=== PATIENT | male | born 1955 | race Caucasian/White ===

== ENCOUNTER 2022-02-28 13:15 | Inpatient (IN) ==
[2022-02-28] MEDS ORDERED: SODIUM CHLORIDE 0.9% 500 ML IV ONE (13:52)
[2022-02-28 14:08] LABS: Basophils # (auto) 0.04 K/uL (0-0.2); Basophils % (auto) 0.3 %; Eosinophils # (auto) 0.28 K/uL (0-0.5); Eosinophils % (auto) 1.8 %; Hematocrit (blood only) 46.9 % (42-52); Hemoglobin 15.5 g/dL (14.0-18.0); Immature Granulocytes # (auto) 0.03 K/uL (0.00-0.02); Immature Granulocytes % (auto) 0.2 %; Lymphocytes # (auto) 1.73 K/uL (1.2-3.4); Lymphocytes % (auto) 11.1 %; Mean Corpuscular Hemoglobin 30.9 pg (25-34); Mean Corpuscular Volume 93.6 fL (80-100); Mean Platelet Volume 10.8 fL (7.4-10.4); Monocytes # (auto) 0.83 K/uL (0.11-0.59); Monocytes % (auto) 5.3 %; Neutrophils # (auto) 12.64 K/uL (1.4-6.5); Neutrophils % (auto) 81.3 %; Platelet Count 270 K/uL (130-400); RDW Coefficient of Variation 15.4 % (11.5-14.5); RDW Standard Deviation 51.9 fL (36.4-46.3); Red Blood Count 5.01 M/uL (4.7-6.1); White Blood Count 15.55 K/uL (4.8-10.8)
--- NOTE | 2022-02-28 14:17 | XRay Report ---
SINGLE VIEW CHEST CLINICAL HISTORY: Atypical chest pain. FINDINGS: An AP, portable, upright chest radiograph is obtained. No priors The patient is status post midline sternotomy. The heart is mildly enlarged noting atherosc lerotic calcification of the thoracic aorta. The pulmonary vasculature is noncongested. There is sign ificant fullness of both carin. Airspace consolidation is seen throughout the right upper lung. The le ft lung appears clear noting basilar atelectasis. No large pleural effusion or pneumothorax is seen. The skeletal structures are osteopenic. The bony thorax is grossly intact. IMPRESSION: 1. There is airspace consolidation throughout the right upper lung, likely representing pneumonia. Cl inical correlation will be required and radiographic follow-up to resolution is recommended. 2. There is fullness of the carin bilaterally which could represent enlargement of the pulmonary arter ies versus lymphadenopathy. If there is concern for obstructing right hilar mass lesion a contrast-en hanced CT scan should be considered. 3. Cardiomegaly with no radiographic evidence of congestive failure. ACT 112: Negative or not required by law. Electronically signed by: Harsh Lawler M.D. 02/28/2022 2:16 PM
[2022-02-28 14:39] LABS: Albumin Globulin Ratio 0.7 (0.9-2); Albumin Level 3.6 gm/dl (3.4-5.0); BUN Creatinine Ratio 21.1 (10-20); Bilirubin,Total 0.9 mg/dl (0.2-1.0); Calcium 13.9 mg/dl (8.5-10.1); Creatinine Clr Calc Pharmacy 49.4 ml/min; Est GFR (African American) 67.1 ml/min; Est GFR (Non-African American) 57.9 ml/min; Magnesium 1.7 mg/dl (1.7-2.4); Phosphorus 2.8 mg/dl (2.5-4.9); Potassium 4.6 mmol/L (3.5-5.1); Total Protein 8.6 gm/dl (6.0-8.3)
[2022-02-28] MEDS ORDERED: SODIUM CHLORIDE 0.9% 1000ML 1,000 ML IV ONE (15:28)
[2022-02-28] MEDS ORDERED: OPTIRAY 320 125ml IV ONE (16:40)
--- NOTE | 2022-02-28 16:56 | CT Scan Report ---
CT angio chest PE protocol CLINICAL HISTORY: Lung ca, elevated troponin, r/o PE TECHNIQUE: Multidetector row helical CT of the chest was performed with angiographic protocol. Rincon l and sagittal reformations were obtained. Coronal and sagittal MIPS were obtained from the axial meggan a set and were submitted for review. Automated dose lowering techniques and/or adjustment according to patient size were utilized for this exam. Comparison: Comparison is made to chest one view 02/28/2022 FINDINGS: Lungs and pleura: Diffuse centrilobular emphysema is seen most prominent in the upper lobes. Diffuse scarring is recommended. Consolidation is seen in the right upper lobe. Heart and pericardium: Heart size is normal. No pericardial effusion. Vessels: No evidence of pulmonary embolism. Moderate atherosclerotic disease is seen. Mediastinum and carin: Unremarkable. Chest wall and lower neck: Unremarkable. Abdomen: Unremarkable. Bones: Old healed rib fractures are seen. IMPRESSION: 1. No evidence of pulmonary embolism. 2. A large focus of consolidation is in the right upper lobe. Emphysema and scarring is seen. ACT 112: Negative or not required by law. Electronically signed by: Fran Quiñonez M.D. 02/28/2022 4:54 PM
[2022-02-28] MEDS ORDERED: GLUCOSE 40% GEL 15 GM TUBE PO PRN (18:31)
[2022-02-28] MEDS ORDERED: MAGNESIUM HYDROXIDE SUSP 30 ML UDC PO PRN ×2 (18:31→18:35)
[2022-02-28] MEDS ORDERED: GLUCAGON FOR INJ 1 MG VIAL SQ PRN (18:31)
[2022-02-28] MEDS ORDERED: GLUCOSE 10 TABS/TUBE PO PRN (18:31)
[2022-02-28] MEDS ORDERED: ONDANSETRON INJ 2 MG/ML 2 ML VIAL IV PRN (18:31)
[2022-02-28] MEDS ORDERED: ALUMINUM/MAGNESIUM SUSP 30 ML UDC PO PRN (18:31)
[2022-02-28] MEDS ORDERED: POLYETHYLENE (MIRALAX) 17 GM PACK PO PRN ×2 (18:31→18:35)
[2022-02-28] MEDS ORDERED: DEXTROSE 50% 50 ML SYRINGE IV PRN (18:31)
[2022-02-28] MEDS ORDERED: CARBOHYDRATES FOR HYPOGLYCEMIA PO PRN (18:31)
[2022-02-28] MEDS ORDERED: PHARMACY GLYCEMIC MGMT CONSULT PRN (18:31)
[2022-02-28] MEDS ORDERED: DOCUSATE SODIUM/SENNA 50/8.6MG TAB PO PRN (18:35)
[2022-02-28] MEDS ORDERED: ACETAMINOPHEN 325 MG TAB PO PRN (18:35)
[2022-02-28] MEDS ORDERED: bisacodyL 10 MG SUPP PR PRN (18:35)
[2022-02-28] MEDS ORDERED: IPRATROPIUM BROMIDE/ALBUTEROL respimat INH INH PRN (18:35)
[2022-02-28] MEDS ORDERED: INSULIN NPH ISOPH U HUMAN SC SCH (18:45)
--- NOTE | 2022-02-28 18:49 | Emergency Department Note ---
Impression & Plan Hypercalcemia, Mass of right lung, Chronic HFrEF (heart failure with reduced ejection fraction), Elevated troponin ED Provider Note NAME: JEREMIAH BE AGE: 66 SEX: M ARRIVES VIA: Ambulance INFORMANT: Patient ED PROVIDER(S): Law Gaxiola MD CHIEF COMPLAINT: Elevated calcium, referred. PLAN: Disposition: Admit MEDICAL DECISION MAKING: The patient is a pleasant 66-year-old gentleman with a past medical history of lung CA, CHF who presents to the emergency department from [facility] for evaluation of acute hypercalcemia which was noted today. Per EMS report his calcium was elevated to 15. Patient is a poor historian and reports generalized body aches but denies chest pain or shortness of breath from his recent baseline. On arrival the patient is chronically ill-appearing but no acute distress, afeb rile stable vital signs. He appears clinically dry. He has diminished breath sounds of the right upper lung strickland and lungs are otherwise clear. EKG without overt acute ischemia. Chest x-ray demonstrates known right upper lobe lung masslike consolidation. WBC, 15.5K, without left shift, non-specific. H/H, platelets wnl. Chemistry without acidosis. BUN/Cr>20 c/w patient's clinically dry appearance. Calcium 13.9. LFTs without significant abnormality. High-sensitivity troponin was elevated at 29.4, nonspecific. Lipase wnl. Procalcitonin is not significantly elevated. CTA of the chest was performed and was negative for PE. Remonstration and further characterization of the patient's known right upper lobe mass-like consolidation is seen. Patient was ordered for cautious IV fluid hydration in the setting of history of CHF for his elevated calcium. Plan for admission for further management. Case was discussed with Dr. Holt, [facility] hospitalist, who will evaluate the patient for admission. Triage Nursing notes reviewed and agree them. Prior medical records reviewed Vital Signs: reviewed and remarkable for no significant abnormalities Differential diagnosis: Infection, dehydration, metabolic abnormality, hypo/hyperglycemia, electrolyte disturbance, anemia, hypoxia, cardiac sources, intracerebral event, toxicologic, neurologic, as well as other pathologies. ER treatment provided: See below. Diagnostics interpreted by me: ECG: Normal sinus rhythm, 92 bpm, no ectopy, no overt ST elevation or depression, QTC 474, QRS 94 Cardiac Monitoring: An order for continuous cardiac monitoring was placed and demonstrated Normal sinus rhythm, 92 bpm, no ectopy. Laboratory studies: See below Imaging studies: See below Consultation(s): Dr. Holt, [facility] hospitalist. HPI: The patient is a pleasant 66-year-old gentleman with a past medical history of lung CA, CHF who presents to the emergency department from [facility] for evaluation of acute hypercalcemia which was noted today. Per EMS report his calcium was elevated to 15. Patient is a poor historian and reports generalized body aches but denies chest pain or shortness of breath from his recent baseline. ROS: See above HPI for pertinent positives & negatives. A total of 10 systems reviewed and were otherwise negative. VITALS:See Below PHYSICAL EXAMINATION: GENERAL: Awake, alert, chronically ill-appearing, in no distress HENT: Normocephalic, atraumatic. Oropharynx with dry mucous membranes and otherwise unremarkable. EYES: Normal conjunctiva. Sclera non-icteric. NECK: Supple. No nuchal rigidity. FROM. No JVD. RESPIRATORY: Diminished breath sounds of the right upper lung strickland and lungs are otherwise clear. CARDIAC: Regular rate, normal rhythm. Extremities warm and well perfused. Pulses equal. ABDOMEN: Soft, non-distended. No tenderness to palpation. No rebound or guarding. No masses. RECTAL: Deferred. MUSCULOSKELETAL: Chest examination reveals no tenderness. The back is symmetrical on inspection without obvious abnormality. There is no CVA tenderness to palpation. No joint edema. LOWER EXTREMITIES: Calves are equal size bilaterally and non-tender. No edema. No discoloration. NEURO: Normal sensorium. No sensory or motor deficits noted. SKIN: No rash or jaundice noted. ED COURSE: Critical Care: I have personally spent greater than 45 minutes of critical care time in the direct management of this patient. This includes bedside care, interpretation of diagnostic studies, and testing, discussion with consultants, patient, and family members, and other required patient management activities. This 45 minutes is in excess of all separately billable procedures. Law Gaxiola MD Past Med/Surg History Medical History CAD (coronary artery disease) Chronic HFrEF (heart failure with reduced ejection fraction) Chronic respiratory failure COPD (chronic obstructive pulmonary disease) CVA (cerebral vascular accident) CVA (cerebral vascular accident) Ischemic cardiomyopathy Pulmonary HTN Squamous cell carcinoma of lung T2DM (type 2 diabetes mellitus) Surgical History Hx of coronary artery bypass graft x4CABG, CANNON, EVH performed by Wild Kumar MD at [facility] Family History Father , 58 Lymphoma Mother Depression Alcohol abuse Social History Smoking Status: Never smoker Tobacco Type: Cigarettes packs per day: 1; Years Smoked: 47; Do You Dip or Chew Tobacco: No; Hx Alcohol Use: No Hx Substance Use: No Preferred Language: Citizen Of [place] Communication Ability: Effective 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: No Beliefs That Will Affect Care: None marital status: Current Living Situation: Spouse Other Information That Helps Us Care for You: No Feels Safe at Home: Yes Safety Concerns: Feels Safe At This Time Assistive Devices: None Allergies Allergies Allergy/AdvReac Type Severity Reaction Status Date / Time No Known Allergies Allergy Verified 02/28/22 16:33 Home Meds Home Medications Medication Instructions Recorded Confirmed Oxygen Home 02/03/22 02/28/22 aspirin 81 mg tablet,delayed 81 mg PO DAILY 02/03/22 02/28/22 release atorvastatin 40 mg tablet 40 mg PO QDD 02/03/22 02/28/22 clopidogrel 75 mg tablet 75 mg PO DAILY 02/03/22 02/28/22 furosemide 40 mg tablet 40 mg PO DAILY 02/03/22 02/28/22 metformin 1,000 mg tablet 1,000 mg PO BIDM 02/03/22 02/28/22 metoprolol succinate 50 mg 50 mg PO BID 02/03/22 02/28/22 tablet,extended release 24 hr acetaminophen 325 mg tablet 650 mg PO Q4H PRN 02/28/22 02/28/22 (Tylenol) bisacodyl 10 mg rectal suppository 10 mg PA DAILY PRN 02/28/22 02/28/22 docusate sodium 100 mg capsule 100 mg PO BID 02/28/22 02/28/22 enoxaparin 40 mg/0.4 mL 40 mg SUBCUT DAILY 02/28/22 02/28/22 subcutaneous syringe fluticasone furoate 100 1 inh INHALATION DAILY 02/28/22 02/28/22 mcg-vilanterol 25 mcg/dose inhalation powder (Breo Ellipta) insulin NPH isoph U-100 human 30 units SC BIDWMEAL 02/28/22 02/28/22 insulin regular human 100 unit/mL 1 sliding scale dose SUBCUT ACHS 02/28/22 02/28/22 injection solution (Humulin R Regular U-100 Insulin) ipratropium 20 mcg-albuterol 100 1 puff INHALATION QID PRN 02/28/22 02/28/22 mcg/actuation mist for inhalation (Combivent Respimat) magnesium hydroxide 400 mg/5 mL 30 ml PO DAILY PRN 02/28/22 02/28/22 oral suspension (Milk of Magnesia) polyethylene glycol 3350 17 17 g PO QDL PRN 02/28/22 02/28/22 gram/dose oral powder (Miralax) sennosides 8.6 mg-docusate sodium 1 tab-cap PO QDL PRN 02/28/22 02/28/22 50 mg tablet (Senokot-S) Results & Data (ED) Vital Signs Vital Signs - 24 hr 02/28/22 13:29 02/28/22 14:13 02/28/22 15:00 Temperature 36.8 C Temperature Source Oral Pulse Rate 91 H 90 Pulse Rate [Apical] 91 H 91 H Pulse Rhythm Regular Pulse Rhythm [Apical] Respiratory Rate 20 20 18 Respiratory Effort / Characteristics Non-Labored Spontaneous Non-Labored Spontaneous Respiratory Depth Normal Normal Respiratory Pattern Regular Regular Blood Pressure 108/64 Blood Pressure [Right Arm] 108/64 109/65 Blood Pressure Mean 78 Blood Pressure Mean [Right Arm] 78 79 Blood Pressure Position [Right Arm] Sitting Pulse Oximetry 99 100 98 Oxygen Delivery Method Nasal Cannula Room Air Nasal Cannula Oxygen Flow Rate 2 2 Sepsis Recent Fever Within 48 Hours No Sepsis New/Unexplained Change in Mental Status No Sepsis Action Taken by Nursing No Action Required 02/28/22 17:00 Temperature Temperature Source Pulse Rate Pulse Rate [Apical] 95 H Pulse Rhythm Pulse Rhythm [Apical] Regular Respiratory Rate 16 Respiratory Effort / Characteristics Respiratory Depth Normal Respiratory Pattern Regular Blood Pressure Blood Pressure [Right Arm] 123/69 Blood Pressure Mean Blood Pressure Mean [Right Arm] 87 Blood Pressure Position [Right Arm] Sitting Pulse Oximetry 99 Oxygen Delivery Method Nasal Cannula Oxygen Flow Rate 2 Sepsis Recent Fever Within 48 Hours Sepsis New/Unexplained Change in Mental Status Sepsis Action Taken by Nursing Laboratory Data Attestation: I reviewed the patient's lab results. Result diagrams: 02/28/22 13:34 02/28/22 13:34 Lab Results 02/28/22 02/28/22 02/28/22 Range/Units 13:27 13:34 13:34 WBC 15.55 H (4.8-10.8) K/uL RBC 5.01 (4.7-6.1) M/uL Hgb 15.5 (14.0-18.0) g/dL Hct 46.9 (42-52) % MCV 93.6 (80-100) fL MCH 30.9 (25-34) pg MCHC 33.0 (32-36) g/dL RDW Std Deviation 51.9 H (36.4-46.3) fL RDW Coeff of Christopher 15.4 H (11.5-14.5) % Plt Count 270 (130-400) K/uL MPV 10.8 H (7.4-10.4) fL Immature Gran % (Auto) 0.2 % Neut % (Auto) 81.3 % Lymph % (Auto) 11.1 % Charlton % (Auto) 5.3 % Eos % (Auto) 1.8 % Baso % (Auto) 0.3 % Neut # (Auto) 12.64 H (1.4-6.5) K/uL Lymph # (Auto) 1.73 (1.2-3.4) K/uL Charlton # (Auto) 0.83 H (0.11-0.59) K/uL Eos # (Auto) 0.28 (0-0.5) K/uL Baso # (Auto) 0.04 (0-0.2) K/uL Immature Gran # (Auto) 0.03 H (0.00-0.02) K/uL Sodium (136-145) mmol/L Potassium (3.5-5.1) mmol/L Chloride (98-107) mmol/L Carbon Dioxide (21-32) mmol/L Anion Gap (3-11) BUN (6-23) mg/dl Creatinine (0.6-1.4) mg/dl Est Cr Clr Drug Dosing ml/min Est GFR ( Amer) ml/min Est GFR (Non-Af Amer) ml/min BUN/Creatinine Ratio (10-20) Glucose (70-99(Fasting)) mg/dl POC Glucose 112 H (70-99) mg/dl Calcium (8.5-10.1) mg/dl Phosphorus (2.5-4.9) mg/dl Magnesium (1.7-2.4) mg/dl Total Bilirubin (0.2-1.0) mg/dl AST (13-39) U/L ALT (7-52) U/L Alkaline Phosphatase (34-104) U/L Troponin I High Sens 29.4 H (0-20) pg/ml Total Protein (6.0-8.3) gm/dl Albumin (3.4-5.0) gm/dl Globulin (2.5-4.0) gm/dl Albumin/Globulin Ratio (0.9-2) Lipase (11-82) U/L Procalcitonin (0-0.5) ng/ml SARS-CoV-2, RNA, NAAT (NEGATIVE) 02/28/22 02/28/22 02/28/22 Range/Units 13:34 13:34 15:52 WBC (4.8-10.8) K/uL RBC (4.7-6.1) M/uL Hgb (14.0-18.0) g/dL Hct (42-52) % MCV (80-100) fL MCH (25-34) pg MCHC (32-36) g/dL RDW Std Deviation (36.4-46.3) fL RDW Coeff of Christopher (11.5-14.5) % Plt Count (130-400) K/uL MPV (7.4-10.4) fL Immature Gran % (Auto) % Neut % (Auto) % Lymph % (Auto) % Charlton % (Auto) % Eos % (Auto) % Baso % (Auto) % Neut # (Auto) (1.4-6.5) K/uL Lymph # (Auto) (1.2-3.4) K/uL Charlton # (Auto) (0.11-0.59) K/uL Eos # (Auto) (0-0.5) K/uL Baso # (Auto) (0-0.2) K/uL Immature Gran # (Auto) (0.00-0.02) K/uL Sodium 132 L (136-145) mmol/L Potassium 4.6 (3.5-5.1) mmol/L Chloride 89 L (98-107) mmol/L Carbon Dioxide 34 H (21-32) mmol/L Anion Gap 9 (3-11) BUN 27 H (6-23) mg/dl Creatinine 1.28 (0.6-1.4) mg/dl Est Cr Clr Drug Dosing 49.4 ml/min Est GFR ( Amer) 67.1 ml/min Est GFR (Non-Af Amer) 57.9 ml/min BUN/Creatinine Ratio 21.1 H (10-20) Glucose 115 H (70-99(Fasting)) mg/dl POC Glucose (70-99) mg/dl Calcium 13.9 H* (8.5-10.1) mg/dl Phosphorus 2.8 (2.5-4.9) mg/dl Magnesium 1.7 (1.7-2.4) mg/dl Total Bilirubin 0.9 (0.2-1.0) mg/dl AST 16 (13-39) U/L ALT 13 (7-52) U/L Alkaline Phosphatase 87 (34-104) U/L Troponin I High Sens (0-20) pg/ml Total Protein 8.6 H (6.0-8.3) gm/dl Albumin 3.6 (3.4-5.0) gm/dl Globulin 5.0 H (2.5-4.0) gm/dl Albumin/Globulin Ratio 0.7 L (0.9-2) Lipase 17 (11-82) U/L Procalcitonin 0.28 (0-0.5) ng/ml SARS-CoV-2, RNA, NAAT NEGATIVE (NEGATIVE) Administered Medications Docusate Sodium (Docusate Sodium 100 Mg Cap) 100 mg PO BID JEREMY Stop: 03/30/22 20:59 Last Admin: 02/28/22 20:46 Dose: Not Given Documented by: [id number] Enoxaparin Sodium (Enoxaparin Inj 40 Mg/0.4 Ml Syr) 40 mg SQ Q24H JEREMY Stop: 03/30/22 21:59 Last Admin: 02/28/22 20:46 Dose: 40 mg Documented by: [id number] Insulin Aspart (Insulin Aspart Per Unit) 0 units SC ACHS JEREMY Stop: 03/30/22 20:59 Last Admin: 02/28/22 20:46 Dose: Not Given Documented by: [id number] Metoprolol Succinate (Metoprolol Succ 50mg Ext Rel Tab) 50 mg PO BID JEREMY Stop: 03/30/22 20:59 Last Admin: 02/28/22 20:46 Dose: Not Given Documented by: [id number] Discontinued Medications Sodium Chloride (Nss) 500 mls @ 999 mls/hr IV .Q31M ONE Stop: 02/28/22 14:22 Last Infusion: 02/28/22 14:33 Dose: 0 mls/hr Documented by: [id number] Admin: 02/28/22 14:01 Dose: 999 mls/hr Documented by: [id number] Sodium Chloride (Nss 1000ml) 1,000 mls @ 999 mls/hr IV .Q1H1M ONE Stop: 02/28/22 16:28 Last Infusion: 02/28/22 17:26 Dose: 0 mls/hr Documented by: [id number] Admin: 02/28/22 15:54 Dose: 999 mls/hr Documented by: [id number] Ioversol (Optiray 320 125ml) 118 ml IV ONCE ONE Stop: 02/28/22 16:41 Last Admin: 02/28/22 16:41 Dose: 118 ml Documented by: [id number] Imaging Data Radiologist's Impression: Chest X-Ray 02/28/22 13:52 SINGLE VIEW CHEST CLINICAL HISTORY: Atypical chest pain. FINDINGS: An AP, portable, upright chest radiograph is obtained. No priors The patient is status post midline sternotomy. The heart is mildly enlarged noting atherosclerotic calcification of the thoracic aorta. The pulmonary vasculature is noncongested. There is significant fullness of both carin. Airspace consolidation is seen throughout the right upper lung. The left lung appears clear noting basilar atelectasis. No large pleural effusion or pneumothorax is seen. The skeletal structures are osteopenic. The bony thorax is grossly intact. IMPRESSION: 1. There is airspace consolidation throughout the right upper lung, likely representing pneumonia. Clinical correlation will be required and radiographic follow-up to resolution is recommended. 2. There is fullness of the carin bilaterally which could represent enlargement of the pulmonary arteries versus lymphadenopathy. If there is concern for obstructing right hilar mass lesion a contrast-enhanced CT scan should be considered. 3. Cardiomegaly with no radiographic evidence of congestive failure. ACT 112: Negative or not required by law. Electronically signed by: Harsh Lawler M.D. 02/28/2022 2:16 PM Chest CTA 02/28/22 15:28 CT angio chest PE protocol CLINICAL HISTORY: Lung ca, elevated troponin, r/o PE TECHNIQUE: Multidetector row helical CT of the chest was performed with angiographic protocol. Coronal and sagittal reformations were obtained. Coronal and sagittal MIPS were obtained from the axial data set and were submitted for review. Automated dose lowering techniques and/or adjustment according to patient size were utilized for this exam. Comparison: Comparison is made to chest one view 02/28/2022 FINDINGS: Lungs and pleura: Diffuse centrilobular emphysema is seen most prominent in the upper lobes. Diffuse scarring is recommended. Consolidation is seen in the right upper lobe. Heart and pericardium: Heart size is normal. No pericardial effusion. Vessels: No evidence of pulmonary embolism. Moderate atherosclerotic disease is seen. Mediastinum and carin: Unremarkable. Chest wall and lower neck: Unremarkable. Abdomen: Unremarkable. Bones: Old healed rib fractures are seen. IMPRESSION: 1. No evidence of pulmonary embolism. 2. A large focus of consolidation is in the right upper lobe. Emphysema and scarring is seen. ACT 112: Negative or not required by law. Electronically signed by: Fran Quiñonez M.D. 02/28/2022 4:54 PM Discharge Plan Visit Data Chief Complaint: Abnormal Labs/Diagnostic Testing ED Provider: Law Gaxiola Discharge Problem: Hypercalcemia, Mass of right lung, Chronic HFrEF (heart failure with reduced e jection fraction), Elevated troponin Patient Disposition: Admitted As Inpatient Discharge Instructions Interventions: ED Discharge Assessment Last Done: 02/28/22 18:09
[2022-02-28] MEDS ORDERED: Ipratropium HFA Inhaler (Combivent Respimat P&T Subs) INH PRN (19:26)
[2022-02-28] MEDS ORDERED: Albuterol HFA 8 GM Inhaler (Combivent Respimat P&T Subs) INH PRN (19:26)
--- NOTE | 2022-02-28 19:41 | History & Physical Report ---
Date of Service February 28, 2022 Assessment & Plan (1) Hypercalcemia: (2) Elevated troponin: (3) Squamous cell carcinoma of lung: (4) Chronic HFrEF (heart failure with reduced ejection fraction): (5) T2DM (type 2 diabetes mellitus): (6) COPD (chronic obstructive pulmonary disease): (7) Pulmonary HTN: (8) Hx of coronary artery bypass graft: (9) CVA (cerebral vascular accident): Plan: Pt is a 66 y/o M with hx of CAD s/p CABG, HFrEF (15%), severe pulm HTN with hypoxia (on 2L), uncontrolled IDDM, COPD with hx of smoking, subacute L parietal lobe infarct, recent dx of squamous cell carcinoma of the lung brought in from [facility] for elevated calcium Hypercalcemia: -pts Ca++ was 11.3 upon discharge from [facility] -he is currently asymptomatic -EKG showed slightly prolong QTc with NSR -not on any Ca++ supplement -will obtain PTH, ionized calcium and Vit D -due to dx of lung Cancer: if the PTH is normal or low then will get Spine imaging to r/o bone mets -admit to tele and pt is s/p 1L bolus Elevated WBC: -pt has chronic hx of elevated WBC -procal is neg and afebrile -not suspecting infection -will trend CBC Recent dx of R lung squamous cell carcinoma with hypoxia: -former smoker -on oxygen supplement - was sched to follow up oncology -will [facility] oncology follow up on discharge -discussed dx with pt and family they would like to proceed with treatment -will get palliative consult for goals of care discussion - CTA chest showed no PE HFrEF and CAD s/p CABG: -trop is elevated -pt is asymptomatic and euvolemic -Hs trop on 02/19/22 was 40 --- today it is 29.4 -will trend trop -strict I/O -will consult cards if trop increases or Ca++ worsen COPD with hypoxia: -at home pt is on 2L -will continue home regimen Uncontrolled IDDM: -will continue home insulin regimen -hold metformin -recent A1C of 11.1 Subacute infarct with prior CVA: -no residual weakness -will continue statin, aspirin and Plavix -will get PT/OT -likely discharge back to [facility] Diet:Cardiac and diabetic DVT PPx:Lovenox Code Status:FULL CODE Emergency Contact: Daughter (Shannon Scott [phone]) Admission and Anticipated Discharge Date Admission Date: February 28, 2022 History of Present Illness Chief Complaint: HyperCa++ Primary Care Provider: Hannah [facility] Pt is a 66 y/o M with hx of CAD s/p CABG, HFrEF (15%), severe pulm HTN with hypoxia (on 2L), uncontrolled IDDM, COPD with hx of smoking, subacute L parietal lobe infarct, recent dx of squamous cell carcinoma of the lung brought in from [facility] for elevated calcium. Pt was recently admitted to [facility] for hypoxia and underwent lung biopsy. He was discharged to [facility]. At bedside: pt denied any Cp, SOB, palpitation, N/V or diarrhea. Denied any myalgia, back pain, or muscle twitching Pts daughter at bedside. Their current plan is to move the pt to [place] when he is stable. Pt was scheduled to see oncology tomorrow @ [facility]. Echo (10/2021): Calculated LV ejection Fraction = 15% (bi-plane method of discs). Left ventricular diastolic dysfunction is present when systolic function is reduced. There is diffuse hypokinesis. The right ventricular cavity is mildly dilated. The right ventricular systolic function is severely reduced . Mild aortic valve sclerosis is present. Aortic stenosis is absent. Trace aortic insufficiency is present. Moderate tricuspid regurgitation is present. There is mild pulmonary regurgitation. The proximal inferior vena cava is dilated. The pulmonary artery systolic pressure is 67.6 mmHg. Dilated IVC with reduced collapsability with sniff indicates an elevated right atrial pressure of 15mmHg. Severe pulmonary hypertension is present. MRI brain (01/2022): Generalized volume loss, chronic microvascular ischemia, prior lacunar infarcts, and focal subacute ischemia in the left parietal lobe. Otherwise, significantly limited evaluation due to motion artifact. Although no large enhancing lesions are identified, smaller metastatic lesions cannot be excluded on this examination. Allergies Allergy/AdvReac Type Severity Reaction Status Date / Time No Known Allergies Allergy Verified 02/28/22 16:33 Home Medications Medication Instructions Recorded Confirmed Type Oxygen Home 02/03/22 02/28/22 History aspirin 81 mg tablet,delayed 81 mg PO DAILY 02/03/22 02/28/22 History release atorvastatin 40 mg tablet 40 mg PO QDD 02/03/22 02/28/22 History clopidogrel 75 mg tablet 75 mg PO DAILY 02/03/22 02/28/22 History furosemide 40 mg tablet 40 mg PO DAILY 02/03/22 02/28/22 History metformin 1,000 mg tablet 1,000 mg PO BIDM 02/03/22 02/28/22 History metoprolol succinate 50 mg 50 mg PO BID 02/03/22 02/28/22 History tablet,extended release 24 hr acetaminophen 325 mg tablet 650 mg PO Q4H PRN 02/28/22 02/28/22 History (Tylenol) bisacodyl 10 mg rectal suppository 10 mg IA DAILY PRN 02/28/22 02/28/22 History docusate sodium 100 mg capsule 100 mg PO BID 02/28/22 02/28/22 History enoxaparin 40 mg/0.4 mL 40 mg SUBCUT DAILY 02/28/22 02/28/22 History subcutaneous syringe fluticasone furoate 100 1 inh INHALATION DAILY 02/28/22 02/28/22 History mcg-vilanterol 25 mcg/dose inhalation powder (Breo Ellipta) insulin NPH isoph U-100 human 30 units SC BIDWMEAL 02/28/22 02/28/22 History insulin regular human 100 unit/mL 1 sliding scale dose SUBCUT ACHS 02/28/22 02/28/22 History injection solution (Humulin R Regular U-100 Insulin) ipratropium 20 mcg-albuterol 100 1 puff INHALATION QID PRN 02/28/22 02/28/22 History mcg/actuation mist for inhalation (Combivent Respimat) magnesium hydroxide 400 mg/5 mL 30 ml PO DAILY PRN 02/28/22 02/28/22 History oral suspension (Milk of Magnesia) polyethylene glycol 3350 17 17 g PO QDL PRN 02/28/22 02/28/22 History gram/dose oral powder (Miralax) sennosides 8.6 mg-docusate sodium 1 tab-cap PO QDL PRN 02/28/22 02/28/22 History 50 mg tablet (Senokot-S) Past Med/Surg History Medical History (Updated 02/28/22 @ 19:38 by Waldo Holt MD) CAD (coronary artery disease) Chronic HFrEF (heart failure with reduced ejection fraction) Chronic respiratory failure COPD (chronic obstructive pulmonary disease) CVA (cerebral vascular accident) CVA (cerebral vascular accident) Ischemic cardiomyopathy Pulmonary HTN Squamous cell carcinoma of lung T2DM (type 2 diabetes mellitus) Surgical History (Updated 02/28/22 @ 17:29 by Vinita Fernandez PA-C) Hx of coronary artery bypass graft x4CABG, [place], EVH performed by Wild Kumar MD at OR [facility] Family History (Updated 02/28/22 @ 17:30 by Vinita Fernandez PA-C) Father , 58 Lymphoma Mother Depression Alcohol abuse Social History (Updated 02/28/22 @ 17:31 by Vinita Fernandez PA-C) Smoking Status: Never smoker Tobacco Type: Cigarettes packs per day: 1; Years Smoked: 47; Do You Dip or Chew Tobacco: No; Hx Alcohol Use: No Hx Substance Use: No Preferred Language: Arabic Communication Ability: Effective Rubber Attacher Required: No Beliefs That Will Affect Care: None marital status: Current Living Situation: Spouse Other Information That Helps Us Care for You: No Feels Safe at Home: Yes Safety Concerns: Feels Safe At This Time Assistive Devices: None Review of Systems Review of Systems: At least 10 Review of systems were reviewed and all negative except as indicated in HPI Physical Exam Physical Exam: General:mildy cachetic, NAD HEENT:. Normocephalic and atraumatic, Normal Conjunctiva, EOMI, Sclera is non- icteric Lungs:.b/l lower lobe rales, No signs of respiratory distress Heart:. Normal S1, S2, no murmur Abdominal:. ND, Soft, NT MSK:.No leg edema Psych:. AAOx3, normal affect Results & Data Results & Data ([facility]) Vital Signs (Past 12 Hours) Vital Signs Temp Pulse Pulse Resp BP BP Pulse Ox 02/28/22 18:31 36.5 C 96 H 95 H 20 97/71 L 98 02/28/22 17:00 95 H 16 123/69 99 02/28/22 15:00 91 H 18 109/65 98 02/28/22 14:13 90 20 100 02/28/22 13:29 36.8 C 91 H 91 H 20 108/64 108/64 99 Pulse Ox 02/28/22 18:31 98 02/28/22 17:00 02/28/22 15:00 02/28/22 14:13 02/28/22 13:29 Laboratory Results Short CBC 02/28/22 Range/Units 13:34 WBC 15.55 H (4.8-10.8) K/uL Hgb 15.5 (14.0-18.0) g/dL Hct 46.9 (42-52) % Plt Count 270 (130-400) K/uL BMP 02/28/22 13:34 Sodium 132 L Potassium 4.6 Chloride 89 L Carbon Dioxide 34 H BUN 27 H Creatinine 1.28 Glucose 115 H Calcium 13.9 H* Liver Function 02/28/22 Range/Units 13:34 Total Bilirubin 0.9 (0.2-1.0) mg/dl AST 16 (13-39) U/L ALT 13 (7-52) U/L Alkaline Phosphatase 87 (34-104) U/L Albumin 3.6 (3.4-5.0) gm/dl Diagnostic Findings Chest X-Ray 02/28/22 13:52 SINGLE VIEW CHEST CLINICAL HISTORY: Atypical chest pain. FINDINGS: An AP, portable, upright chest radiograph is obtained. No priors The patient is status post midline sternotomy. The heart is mildly e nlarged noting atherosclerotic calcification of the thoracic aorta. The pulmonary vasculature is noncongested. There is significant fullness of both carin. Airspace consolidation is seen throughout the right upper lung. The left lung appears clear noting basilar atelectasis. No large pleural effusion or pneumothorax is seen. The skeletal structures are osteopenic. The bony thorax is grossly intact. IMPRESSION: 1. There is airspace consolidation throughout the right upper lung, likely representing pneumonia. Clinical correlation will be required and radiographic follow-up to resolution is recommended. 2. There is fullness of the carin bilaterally which could represent enlargement of the pulmonary arteries versus lymphadenopathy. If there is concern for obstructing right hilar mass lesion a contrast-enhanced CT scan should be considered. 3. Cardiomegaly with no radiographic evidence of congestive failure. ACT 112: Negative or not required by law. Electronically signed by: Harsh Lawler M.D. 02/28/2022 2:16 PM Chest CTA 02/28/22 15:28 CT angio chest PE protocol CLINICAL HISTORY: Lung ca, elevated troponin, r/o PE TECHNIQUE: Multidetector row helical CT of the chest was performed with angiographic protocol. Coronal and sagittal reformations were obtained. Coronal and sagittal MIPS were obtained from the axial data set and were submitted for review. Automated dose lowering techniques and/or adjustment according to patient size were utilized for this exam. Comparison: Comparison is made to chest one view 02/28/2022 FINDINGS: Lungs and pleura: Diffuse centrilobular emphysema is seen most prominent in the upper lobes. Diffuse scarring is recommended. Consolidation is seen in the right upper lobe. Heart and pericardium: Heart size is normal. No pericardial effusion. Vessels: No evidence of pulmonary embolism. Moderate atherosclerotic disease is seen. Mediastinum and carin: Unremarkable. Chest wall and lower neck: Unremarkable. Abdomen: Unremarkable. Bones: Old healed rib fractures are seen. IMPRESSION: 1. No evidence of pulmonary embolism. 2. A large focus of consolidation is in the right upper lobe. Emphysema and scarring is seen. ACT 112: Negative or not required by law. Electronically signed by: Fran Quiñonez M.D. 02/28/2022 4:54 PM Code Status & VTE Plan VTE Prophylaxis Plan VTE Prophylaxis will be ordered: Yes
[2022-02-28] MEDS: INSULIN ASPART PER UNIT SC SCH (20:46)
[2022-02-28] MEDS: METOPROLOL SUCC 50MG EXT REL TAB PO SCH (20:46)
[2022-02-28] MEDS: ENOXAPARIN INJ 40 MG/0.4 ML SYR SQ SCH (20:46)
[2022-02-28] MEDS: DOCUSATE SODIUM 100 MG CAP PO SCH (20:46)
[2022-02-28] MEDS ORDERED: INSULIN GLARGINE SOLOSTAR 100 UNITS/ML 3 ML PEN SC SCH (21:00)
[2022-03-01 06:45] LABS: Basophils # (auto) 0.04 K/uL (0-0.2); Basophils % (auto) 0.3 %; Hematocrit (blood only) 41.2 % (42-52); Hemoglobin 13.3 g/dL (14.0-18.0); Immature Granulocytes # (auto) 0.01 K/uL (0.00-0.02); Immature Granulocytes % (auto) 0.1 %; Lymphocytes # (auto) 1.36 K/uL (1.2-3.4); Lymphocytes % (auto) 10.2 %; Mean Corpuscular Hemoglobin 30.5 pg (25-34); Mean Corpuscular Hgb Conc 32.3 g/dL (32-36); Mean Corpuscular Volume 94.5 fL (80-100); Neutrophils # (auto) 10.68 K/uL (1.4-6.5); Neutrophils % (auto) 80.4 %; Platelet Count 251 K/uL (130-400); RDW Coefficient of Variation 15.5 % (11.5-14.5); RDW Standard Deviation 53.5 fL (36.4-46.3); Red Blood Count 4.36 M/uL (4.7-6.1); White Blood Count 13.29 K/uL (4.8-10.8)
[2022-03-01 07:12] LABS: Albumin Globulin Ratio 0.8 (0.9-2); Albumin Level 3.1 gm/dl (3.4-5.0); BUN Creatinine Ratio 21.6 (10-20); Bilirubin,Total 0.8 mg/dl (0.2-1.0); Calcium 12.6 mg/dl (8.5-10.1); Creatinine Clr Calc Pharmacy 56.9 ml/min; Est GFR (African American) 79.8 ml/min; Est GFR (Non-African American) 68.8 ml/min; Globulin 4.1 gm/dl (2.5-4.0); Magnesium 1.5 mg/dl (1.7-2.4); Potassium 4.3 mmol/L (3.5-5.1); Total Protein 7.2 gm/dl (6.0-8.3)
[2022-03-01] MEDS: CLOPIDOGREL BISULFATE 75 MG TAB PO SCH (07:39)
[2022-03-01] MEDS: ASPIRIN 81 MG ECTAB PO SCH (07:40)
[2022-03-01] MEDS: DOCUSATE SODIUM 100 MG CAP PO SCH ×2 (07:40→20:01)
[2022-03-01] MEDS: FLUTICASONE/VILANTEROL 100/25MCG 14 PUFFS/INHALER INH SCH (07:41)
[2022-03-01] MEDS: METOPROLOL SUCC 50MG EXT REL TAB PO SCH ×2 (07:41→20:01)
[2022-03-01 07:57] LABS: Estimated Average Glucose 249 mg/dl; Hemoglobin A1C 10.3 % (4.5-5.6)
[2022-03-01] MEDS: INSULIN ASPART PER UNIT SC SCH ×4 (08:38→21:07)
[2022-03-01] MEDS ORDERED: FUROSEMIDE 40 MG TAB PO SCH (09:00)
--- NOTE | 2022-03-01 10:13 | Hospitalist Progress Note ---
Date of Service March 01, 2022 Assessment & Plan (1) Hypercalcemia: (2) Elevated troponin: (3) Squamous cell carcinoma of lung: (4) Chronic HFrEF (heart failure with reduced ejection fraction): (5) T2DM (type 2 diabetes mellitus): (6) COPD (chronic obstructive pulmonary disease): (7) Pulmonary HTN: (8) Hx of coronary artery bypass graft: (9) CVA (cerebral vascular accident): Plan: Pt is a 66 y/o M with hx of CAD s/p CABG, HFrEF (15%), severe pulm HTN with hypoxia (on 2L), uncontrolled IDDM, COPD with hx of smoking, subacute L parietal lobe infarct, recent dx of squamous cell carcinoma of the lung brought in from [facility] for elevated calcium Hypercalcemia: -pts Ca++ was 11.3 upon discharge from [facility] -EKG showed slightly prolong QTc with NSR -not on any Ca++ supplement -Received 1 L of normal saline on admission - PTH 4.7 (low), ionized calcium and Vit D (pending) -due to dx of lung Cancer: if the PTH is normal or low - may need Spine imaging to r/o bone mets -Nephrology consulted, patient started on gentle IV fluids and IV Lasix, calcitonin and zoledronic acid Elevated WBC: -pt has chronic hx of elevated WBC -procal is neg and afebrile -not suspecting infection -will trend CBC Recent dx of R lung squamous cell carcinoma with hypoxia: -former smoker -on oxygen supplement - was scheduled to establish care with oncology - Dr. Paras Almazan ([facility]) -admitting provider discussed dx with pt and family they would like to proceed with treatment -palliative consult placed for goals of care discussion - CTA chest showed no PE HFrEF and CAD s/p CABG: -trop is elevated -pt is asymptomatic and euvolemic -Hs trop on 02/19/22 was 40 --- on admission it is 29.4 -trop trended down -strict I/O -would consult cards if trop increased or Ca++ worsen COPD with hypoxia: -at home pt is on 2L -will continue home regimen Uncontrolled IDDM: - current A1c 10.3%, recent A1C of 11.1 -will continue home insulin regimen -hold metformin Subacute infarct with prior CVA: -no residual weakness -will continue statin, aspirin and Plavix -will get PT/OT -likely discharge back to [facility] (however daughter wishes to take pt to [place]) Diet:Cardiac and diabetic DVT PPx:Lovenox Code Status:FULL CODE Emergency Contact: Daughter (Shannon Scott [phone]) Admission and Anticipated Discharge Date Admission Date: February 28, 2022 Subjective Pt seen in follow up of hypercalcemia in the setting of recently diagnosed lung ca Received IVF on admission and Ca level improved Pt reports that he feels better however per daughter at the bedside he looks worse She noted he is not able to answer all questions appropriately Pt currently denies fever, chills. He is on 2L of NC - which is at baseline. Denies chest pain, or worsening shortness of breath. Daughter is visiting from [place] and was planning to take the pt to [place] with her. Pt was supposed to establish care w/ oncology today at [facility]. Review of Systems Review of Systems: All systems reviewed & are unremarkable except as noted in Subjective Physical Exam Physical Exam: General: thin M inNAD HEENT:.Normocephalic and atraumatic, Normal Conjunctiva, EOMI, Sclera is non- icteric Lungs:No signs of respiratory distress, on 2L O2 via NC, no wheezing, or significant rhonchi noted Heart:.Normal S1, S2, no murmur Abdominal:.ND, Soft, NT MSK:.No LE edema Psych:.AAOx3, normal affect Results & Data Results & Data ([facility]) Vital Signs (Past 12 Hours) Vital Signs Temp Pulse Resp BP Pulse Ox 03/01/22 07:27 36.9 C 107 H 16 97/62 L 95 03/01/22 04:20 36.4 C L 111 H 22 117/72 99 02/28/22 22:46 36.5 C 99 H 24 97/66 L 99 Laboratory Results 03/01/22 03/01/22 03/01/22 Range/Units 07:28 06:01 06:01 WBC (4.8-10.8) K/uL RBC (4.7-6.1) M/uL Hgb (14.0-18.0) g/dL Hct (42-52) % MCV (80-100) fL MCH (25-34) pg MCHC (32-36) g/dL RDW Std Deviation (36.4-46.3) fL RDW Coeff of Christopher (11.5-14.5) % Plt Count (130-400) K/uL MPV (7.4-10.4) fL Immature Gran % (Auto) % Neut % (Auto) % Lymph % (Auto) % Harnett % (Auto) % Eos % (Auto) % Baso % (Auto) % Neut # (Auto) (1.4-6.5) K/uL Lymph # (Auto) (1.2-3.4) K/uL Harnett # (Auto) (0.11-0.59) K/uL Eos # (Auto) (0-0.5) K/uL Baso # (Auto) (0-0.2) K/uL Immature Gran # (Auto) (0.00-0.02) K/uL Sodium (136-145) mmol/L Potassium (3.5-5.1) mmol/L Chloride (98-107) mmol/L Carbon Dioxide (21-32) mmol/L Anion Gap (3-11) BUN (6-23) mg/dl Creatinine (0.6-1.4) mg/dl Est Cr Clr Drug Dosing ml/min Est GFR ( Amer) ml/min Est GFR (Non-Af Amer) ml/min BUN/Creatinine Ratio (10-20) Glucose (70-99(Fasting)) mg/dl POC Glucose 112 H (70-99) mg/dl Estimat Average Glucose mg/dl Hemoglobin A1c (4.5-5.6) % Calcium (8.5-10.1) mg/dl Ionized Calcium (1.12-1.32) mmol/L Phosphorus (2.5-4.9) mg/dl Magnesium (1.7-2.4) mg/dl Total Bilirubin (0.2-1.0) mg/dl AST (13-39) U/L ALT (7-52) U/L Alkaline Phosphatase (34-104) U/L Troponin I High Sens (0-20) pg/ml Total Protein (6.0-8.3) gm/dl Albumin (3.4-5.0) gm/dl Globulin (2.5-4.0) gm/dl Albumin/Globulin Ratio (0.9-2) Lipase (11-82) U/L Vit D 1,25-Dihyd Total Pending 1,25 Dihydroxy Vit D2 Pending 1,25 Dihydroxy Vit D3 Pending Procalcitonin (0-0.5) ng/ml PTH Intact 4.7 L (12.0-88.0) pg/ml SARS-CoV-2, RNA, NAAT (NEGATIVE) 03/01/22 03/01/22 03/01/22 Range/Units 06:01 06:01 06:01 WBC (4.8-10.8) K/uL RBC (4.7-6.1) M/uL Hgb (14.0-18.0) g/dL Hct (42-52) % MCV (80-100) fL MCH (25-34) pg MCHC (32-36) g/dL RDW Std Deviation (36.4-46.3) fL RDW Coeff of Christopher (11.5-14.5) % Plt Count (130-400) K/uL MPV (7.4-10.4) fL Immature Gran % (Auto) % Neut % (Auto) % Lymph % (Auto) % Harnett % (Auto) % Eos % (Auto) % Baso % (Auto) % Neut # (Auto) (1.4-6.5) K/uL Lymph # (Auto) (1.2-3.4) K/uL Harnett # (Auto) (0.11-0.59) K/uL Eos # (Auto) (0-0.5) K/uL Baso # (Auto) (0-0.2) K/uL Immature Gran # (Auto) (0.00-0.02) K/uL Sodium 134 L (136-145) mmol/L Potassium 4.3 (3.5-5.1) mmol/L Chloride 96 L (98-107) mmol/L Carbon Dioxide 32 (21-32) mmol/L Anion Gap 6 (3-11) BUN 24 H (6-23) mg/dl Creatinine 1.11 (0.6-1.4) mg/dl Est Cr Clr Drug Dosing 56.9 ml/min Est GFR ( Amer) 79.8 ml/min Est GFR (Non-Af Amer) 68.8 ml/min BUN/Creatinine Ratio 21.6 H (10-20) Glucose 98 (70-99(Fasting)) mg/dl POC Glucose (70-99) mg/dl Estimat Average Glucose 249 mg/dl Hemoglobin A1c 10.3 H (4.5-5.6) % Calcium 12.6 H* (8.5-10.1) mg/dl Ionized Calcium 1.53 H (1.12-1.32) mmol/L Phosphorus (2.5-4.9) mg/dl Magnesium 1.5 L (1.7-2.4) mg/dl Total Bilirubin 0.8 (0.2-1.0) mg/dl AST 10 L (13-39) U/L ALT 9 (7-52) U/L Alkaline Phosphatase 72 (34-104) U/L Troponin I High Sens (0-20) pg/ml Total Protein 7.2 (6.0-8.3) gm/dl Albumin 3.1 L (3.4-5.0) gm/dl Globulin 4.1 H (2.5-4.0) gm/dl Albumin/Globulin Ratio 0.8 L (0.9-2) Lipase (11-82) U/L Vit D 1,25-Dihyd Total 1,25 Dihydroxy Vit D2 1,25 Dihydroxy Vit D3 Procalcitonin (0-0.5) ng/ml PTH Intact (12.0-88.0) pg/ml SARS-CoV-2, RNA, NAAT (NEGATIVE) 03/01/22 03/01/22 02/28/22 Range/Units 06:01 00:40 20:23 WBC 13.29 H (4.8-10.8) K/uL RBC 4.36 L (4.7-6.1) M/uL Hgb 13.3 L (14.0-18.0) g/dL Hct 41.2 L (42-52) % MCV 94.5 (80-100) fL MCH 30.5 (25-34) pg MCHC 32.3 (32-36) g/dL RDW Std Deviation 53.5 H (36.4-46.3) fL RDW Coeff of Christopher 15.5 H (11.5-14.5) % Plt Count 251 (130-400) K/uL MPV 11.0 H (7.4-10.4) fL Immature Gran % (Auto) 0.1 % Neut % (Auto) 80.4 % Lymph % (Auto) 10.2 % Harnett % (Auto) 6.0 % Eos % (Auto) 3.0 % Baso % (Auto) 0.3 % Neut # (Auto) 10.68 H (1.4-6.5) K/uL Lymph # (Auto) 1.36 (1.2-3.4) K/uL Harnett # (Auto) 0.80 H (0.11-0.59) K/uL Eos # (Auto) 0.40 (0-0.5) K/uL Baso # (Auto) 0.04 (0-0.2) K/uL Immature Gran # (Auto) 0.01 (0.00-0.02) K/uL Sodium (136-145) mmol/L Potassium (3.5-5.1) mmol/L Chloride (98-107) mmol/L Carbon Dioxide (21-32) mmol/L Anion Gap (3-11) BUN (6-23) mg/dl Creatinine (0.6-1.4) mg/dl Est Cr Clr Drug Dosing ml/min Est GFR ( Amer) ml/min Est GFR (Non-Af Amer) ml/min BUN/Creatinine Ratio (10-20) Glucose (70-99(Fasting)) mg/dl POC Glucose 100 H (70-99) mg/dl Estimat Average Glucose mg/dl Hemoglobin A1c (4.5-5.6) % Calcium (8.5-10.1) mg/dl Ionized Calcium (1.12-1.32) mmol/L Phosphorus (2.5-4.9) mg/dl Magnesium (1.7-2.4) mg/dl Total Bilirubin (0.2-1.0) mg/dl AST (13-39) U/L ALT (7-52) U/L Alkaline Phosphatase (34-104) U/L Troponin I High Sens 25.7 H (0-20) pg/ml Total Protein (6.0-8.3) gm/dl Albumin (3.4-5.0) gm/dl Globulin (2.5-4.0) gm/dl Albumin/Globulin Ratio (0.9-2) Lipase (11-82) U/L Vit D 1,25-Dihyd Total 1,25 Dihydroxy Vit D2 1,25 Dihydroxy Vit D3 Procalcitonin (0-0.5) ng/ml PTH Intact (12.0-88.0) pg/ml SARS-CoV-2, RNA, NAAT (NEGATIVE) 02/28/22 02/28/22 02/28/22 Range/Units 19:27 15:52 13:34 WBC (4.8-10.8) K/uL RBC (4.7-6.1) M/uL Hgb (14.0-18.0) g/dL Hct (42-52) % MCV (80-100) fL MCH (25-34) pg MCHC (32-36) g/dL RDW Std Deviation (36.4-46.3) fL RDW Coeff of Christopher (11.5-14.5) % Plt Count (130-400) K/uL MPV (7.4-10.4) fL Immature Gran % (Auto) % Neut % (Auto) % Lymph % (Auto) % Harnett % (Auto) % Eos % (Auto) % Baso % (Auto) % Neut # (Auto) (1.4-6.5) K/uL Lymph # (Auto) (1.2-3.4) K/uL Harnett # (Auto) (0.11-0.59) K/uL Eos # (Auto) (0-0.5) K/uL Baso # (Auto) (0-0.2) K/uL Immature Gran # (Auto) (0.00-0.02) K/uL Sodium (136-145) mmol/L Potassium (3.5-5.1) mmol/L Chloride (98-107) mmol/L Carbon Dioxide (21-32) mmol/L Anion Gap (3-11) BUN (6-23) mg/dl Creatinine (0.6-1.4) mg/dl Est Cr Clr Drug Dosing ml/min Est GFR ( Amer) ml/min Est GFR (Non-Af Amer) ml/min BUN/Creatinine Ratio (10-20) Glucose (70-99(Fasting)) mg/dl POC Glucose (70-99) mg/dl Estimat Average Glucose mg/dl Hemoglobin A1c (4.5-5.6) % Calcium (8.5-10.1) mg/dl Ionized Calcium (1.12-1.32) mmol/L Phosphorus (2.5-4.9) mg/dl Magnesium (1.7-2.4) mg/dl Total Bilirubin (0.2-1.0) mg/dl AST (13-39) U/L ALT (7-52) U/L Alkaline Phosphatase (34-104) U/L Troponin I High Sens 26.0 H (0-20) pg/ml Total Protein (6.0-8.3) gm/dl Albumin (3.4-5.0) gm/dl Globulin (2.5-4.0) gm/dl Albumin/Globulin Ratio (0.9-2) Lipase (11-82) U/L Vit D 1,25-Dihyd Total 1,25 Dihydroxy Vit D2 1,25 Dihydroxy Vit D3 Procalcitonin 0.28 (0-0.5) ng/ml PTH Intact (12.0-88.0) pg/ml SARS-CoV-2, RNA, NAAT NEGATIVE (NEGATIVE) 02/28/22 02/28/22 02/28/22 Range/Units 13:34 13:34 13:34 WBC 15.55 H (4.8-10.8) K/uL RBC 5.01 (4.7-6.1) M/uL Hgb 15.5 (14.0-18.0) g/dL Hct 46.9 (42-52) % MCV 93.6 (80-100) fL MCH 30.9 (25-34) pg MCHC 33.0 (32-36) g/dL RDW Std Deviation 51.9 H (36.4-46.3) fL RDW Coeff of Christopher 15.4 H (11.5-14.5) % Plt Count 270 (130-400) K/uL MPV 10.8 H (7.4-10.4) fL Immature Gran % (Auto) 0.2 % Neut % (Auto) 81.3 % Lymph % (Auto) 11.1 % Harnett % (Auto) 5.3 % Eos % (Auto) 1.8 % Baso % (Auto) 0.3 % Neut # (Auto) 12.64 H (1.4-6.5) K/uL Lymph # (Auto) 1.73 (1.2-3.4) K/uL Harnett # (Auto) 0.83 H (0.11-0.59) K/uL Eos # (Auto) 0.28 (0-0.5) K/uL Baso # (Auto) 0.04 (0-0.2) K/uL Immature Gran # (Auto) 0.03 H (0.00-0.02) K/uL Sodium 132 L (136-145) mmol/L Potassium 4.6 (3.5-5.1) mmol/L Chloride 89 L (98-107) mmol/L Carbon Dioxide 34 H (21-32) mmol/L Anion Gap 9 (3-11) BUN 27 H (6-23) mg/dl Creatinine 1.28 (0.6-1.4) mg/dl Est Cr Clr Drug Dosing 49.4 ml/min Est GFR ( Amer) 67.1 ml/min Est GFR (Non-Af Amer) 57.9 ml/min BUN/Creatinine Ratio 21.1 H (10-20) Glucose 115 H (70-99(Fasting)) mg/dl POC Glucose (70-99) mg/dl Estimat Average Glucose mg/dl Hemoglobin A1c (4.5-5.6) % Calcium 13.9 H* (8.5-10.1) mg/dl Ionized Calcium (1.12-1.32) mmol/L Phosphorus 2.8 (2.5-4.9) mg/dl Magnesium 1.7 (1.7-2.4) mg/dl Total Bilirubin 0.9 (0.2-1.0) mg/dl AST 16 (13-39) U/L ALT 13 (7-52) U/L Alkaline Phosphatase 87 (34-104) U/L Troponin I High Sens 29.4 H (0-20) pg/ml Total Protein 8.6 H (6.0-8.3) gm/dl Albumin 3.6 (3.4-5.0) gm/dl Globulin 5.0 H (2.5-4.0) gm/dl Albumin/Globulin Ratio 0.7 L (0.9-2) Lipase 17 (11-82) U/L Vit D 1,25-Dihyd Total 1,25 Dihydroxy Vit D2 1,25 Dihydroxy Vit D3 Procalcitonin (0-0.5) ng/ml PTH Intact (12.0-88.0) pg/ml SARS-CoV-2, RNA, NAAT (NEGATIVE) 02/28/22 Range/Units 13:27 WBC (4.8-10.8) K/uL RBC (4.7-6.1) M/uL Hgb (14.0-18.0) g/dL Hct (42-52) % MCV (80-100) fL MCH (25-34) pg MCHC (32-36) g/dL RDW Std Deviation (36.4-46.3) fL RDW Coeff of Christopher (11.5-14.5) % Plt Count (130-400) K/uL MPV (7.4-10.4) fL Immature Gran % (Auto) % Neut % (Auto) % Lymph % (Auto) % Harnett % (Auto) % Eos % (Auto) % Baso % (Auto) % Neut # (Auto) (1.4-6.5) K/uL Lymph # (Auto) (1.2-3.4) K/uL Harnett # (Auto) (0.11-0.59) K/uL Eos # (Auto) (0-0.5) K/uL Baso # (Auto) (0-0.2) K/uL Immature Gran # (Auto) (0.00-0.02) K/uL Sodium (136-145) mmol/L Potassium (3.5-5.1) mmol/L Chloride (98-107) mmol/L Carbon Dioxide (21-32) mmol/L Anion Gap (3-11) BUN (6-23) mg/dl Creatinine (0.6-1.4) mg/dl Est Cr Clr Drug Dosing ml/min Est GFR ( Amer) ml/min Est GFR (Non-Af Amer) ml/min BUN/Creatinine Ratio (10-20) Glucose (70-99(Fasting)) mg/dl POC Glucose 112 H (70-99) mg/dl Estimat Average Glucose mg/dl Hemoglobin A1c (4.5-5.6) % Calcium (8.5-10.1) mg/dl Ionized Calcium (1.12-1.32) mmol/L Phosphorus (2.5-4.9) mg/dl Magnesium (1.7-2.4) mg/dl Total Bilirubin (0.2-1.0) mg/dl AST (13-39) U/L ALT (7-52) U/L Alkaline Phosphatase (34-104) U/L Troponin I High Sens (0-20) pg/ml Total Protein (6.0-8.3) gm/dl Albumin (3.4-5.0) gm/dl Globulin (2.5-4.0) gm/dl Albumin/Globulin Ratio (0.9-2) Lipase (11-82) U/L Vit D 1,25-Dihyd Total 1,25 Dihydroxy Vit D2 1,25 Dihydroxy Vit D3 Procalcitonin (0-0.5) ng/ml PTH Intact (12.0-88.0) pg/ml SARS-CoV-2, RNA, NAAT (NEGATIVE) Medications Administered Current Inpatient Medications Acetaminophen (Acetaminophen 325 Mg Tab) 650 mg PO Q4H PRN PRN Reason: Pain or Fever Stop: 03/30/22 18:30 Al Hydrox/Mg Hydrox/Simethicone (Aluminum/Magnesium Susp 30 Ml Udc) 15 ml PO Q4H PRN PRN Reason: Dyspepsia Stop: 03/30/22 18:30 Albuterol (Albuterol Hfa 8 Gm Inhaler (Combivent Respimat P&T Subs)) 1 puffs INH QIDR PRN PRN Reason: Shortness Of Breath Or Wheezing Stop: 03/30/22 19:25 Aspirin (Aspirin 81 Mg Ectab) 81 mg PO DAILY [facility] Stop: 03/31/22 08:59 Last Admin: 03/01/22 07:40 Dose: 81 mg Documented by: Atorvastatin Calcium (Atorvastatin 40 Mg Tab) 40 mg PO QDD [facility] Stop: 03/31/22 16:29 Bisacodyl (Bisacodyl 10 Mg Supp) 10 mg SC DAILY PRN PRN Reason: Constipation Stop: 03/30/22 18:34 Clopidogrel Bisulfate (Clopidogrel Bisulfate 75 Mg Tab) 75 mg PO DAILY [facility] Stop: 03/31/22 08:59 Last Admin: 03/01/22 07:39 Dose: 75 mg Documented by: Dextrose (Dextrose 50% 50 Ml Syringe) 25 - 50 ml IV UD PRN; Protocol PRN Reason: Hypoglycemia Protocol Stop: 03/30/22 18:30 Docusate Sodium (Docusate Sodium 100 Mg Cap) 100 mg PO BID [facility] Stop: 03/30/22 20:59 Last Admin: 03/01/22 07:40 Dose: 100 mg Documented by: Enoxaparin Sodium (Enoxaparin Inj 40 Mg/0.4 Ml Syr) 40 mg SQ Q24H JEREMY Stop: 03/30/22 21:59 Last Admin: 02/28/22 20:46 Dose: 40 mg Documented by: Fluticasone/Vilanterol (Fluticasone/Vilanterol 100/25mcg 14 Puffs/Inhaler) 1 puffs INH DAILY JEREMY Stop: 03/31/22 08:59 Last Admin: 03/01/22 07:41 Dose: 1 puffs Documented by: Furosemide (Furosemide 40 Mg Tab) 40 mg PO DAILY JEREMY Stop: 03/31/22 08:59 Last Admin: 03/01/22 07:39 Dose: 40 mg Documented by: Glucagon (Glucagon For Inj 1 Mg Vial) 1 mg SQ UD PRN; Protocol PRN Reason: Hypoglycemia Protocol Stop: 03/30/22 18:30 Glucose (Glucose 10 Tabs/Tube) 4 - 8 tabs PO UD PRN; Protocol PRN Reason: Hypoglycemia Protocol Stop: 03/30/22 18:30 Glucose (Glucose 40% Gel 15 Gm Tube) 15 - 30 gm PO UD PRN; Protocol PRN Reason: Hypoglycemia Protocol Stop: 03/30/22 18:30 Magnesium Sulfate/Dextrose (Magnesium Sulfate / D5w) 1 gm in 100 mls @ 50 mls/hr IV ONE ONE Stop: 03/01/22 12:01 Insulin Aspart (Insulin Aspart Per Unit) 0 units SC ACHS JEREMY Stop: 03/30/22 20:59 Last Admin: 03/01/22 08:38 Dose: Not Given Documented by: Ipratropium [place] (Ipratropium Hfa Inhaler (Combivent Respimat P&T Subs)) 1 puffs INH QIDR PRN PRN Reason: Shortness Of Breath Or Wheezing Stop: 03/30/22 19:25 Magnesium Hydroxide (Magnesium Hydroxide Susp 30 Ml Udc) 30 ml PO Q12H PRN PRN Reason: Constipation Stop: 03/30/22 18:30 Metoprolol Succinate (Metoprolol Succ 50mg Ext Rel Tab) 50 mg PO BID [facility] Stop: 03/30/22 20:59 Last Admin: 04/13/22 07:41 Dose: Not Given Documented by: Miscellaneous (Carbohydrates For Hypoglycemia ) 15 - 30 gm PO UD PRN PRN Reason: Hypoglycemia Protocol Stop: 03/30/22 18:30 Miscellaneous Information (Pharmacy Glycemic Mgmt Consult) 1 ea N/A UD PRN; Protocol PRN Reason: Consult Stop: 03/30/22 18:30 Ondansetron HCl (Ondansetron Inj 2 Mg/Ml 2 Ml Vial) 4 mg IV Q6H PRN PRN Reason: Nausea Stop: 03/30/22 18:30 Polyethylene Glycol (Polyethylene (Miralax) 17 Gm Pack) 17 gm PO QDL PRN PRN Reason: Constipation Stop: 03/30/22 18:34 Senna/Docusate Sodium (Docusate Sodium/Senna 50/8.6mg Tab) 1 tab PO QDL PRN PRN Reason: Constipation Stop: 03/30/22 18:34
[2022-03-01] MEDS ORDERED: MAGNESIUM SULFATE / D5W 1 GM/100 ML BAG IV STA (10:16)
--- NOTE | 2022-03-01 11:22 | Pharmacy Report ---
Pharmacy Glycemic Short Note 2 - Date of Service March 01, 2022 - Glycemic Short BSG Results (Last 24 hours): 02/28/22 02/28/22 02/28/22 13:27 13:34 20:23 Glucose 115 H POC Glucose 112 H 100 H 03/01/22 03/01/22 06:01 07:28 Glucose 98 POC Glucose 112 H OUTPATIENT ANTIDIABETIC REGIMEN: * NPH 30 units SQ BID * Regular insulin per SS * Metformin 1gm BID * A1c = 11.1% 02/11/22 ASSESSMENT: * Type 2 diabetic admitted for hypercalcemia * Thus far BSGs have been well controlled, despite receiving no basal or rapid acting insulin. However given A1c, it is likely patient is going to require some basal and prandial insulin once diet advances. * Will begin low dose basal insulin per scale at this time, no basal will be provided unless BSG > 110. Lantus will be used instead of NPH to avoid "pe aks" * Novolog doses will be based upon weight and "moderate" stress level PLAN FOR INPATIENT GLYCEMIC CONTROL: * Hold outpatient oral diabetes medications (metformin) * Basal insulin * Lantus SQ BID per scale: 0 uits if BSG less than 110, 5 units if BSG 110- 180, 10 units if BSG > 180 * Bolus insulin * NovoLog per scale ACHS or Q6hrs while NPO * Goal Range: Low 110 mg/dL - High 140 mg/dL * Correction Factor: 35 mg/dL/unit * Nutritional / Prandial insulin per carb ratio of 1 unit per 12 grams CHO consumed
[2022-03-01] MEDS: INSULIN GLARGINE SOLOSTAR 100 UNITS/ML 3 ML PEN SC SCH ×2 (12:44→21:07)
[2022-03-01 14:08] LABS: BUN Creatinine Ratio 21.8 (10-20); Calcium 13.2 mg/dl (8.5-10.1); Creatinine Clr Calc Pharmacy 57.5 ml/min; Est GFR (African American) 80.6 ml/min; Est GFR (Non-African American) 69.6 ml/min; Potassium 4.5 mmol/L (3.5-5.1)
--- NOTE | 2022-03-01 17:11 | Nephrology Consultation ---
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 Management complicated by severely reduced ejection fraction ordered 25 hydroxy vitamin D level with labs in the morning Resumed normal saline at 60 mL hourly in conjunction with Lasix which I changed from po to 10 mg IV every 6 hours Started intramuscular calcitonin 4 units per kg every 12 hours ordered zoledronic acid 4 mg IV x1 Daily basic metabolic panel - some risk for YUNG after IV contrast , at least in theory but so far no evidence History of Present Illness Reason for Consultation: Hypercalcemia Requesting Physician: Dr Chen Attending Physician: Fermin Chen MD History of Present Illness 66 y/o male whom I am asked to evaluate for hypercalcemia was admitted here from [facility] rehab for evaluation of serum calcium level 15.2. 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 He has had multiple admissions recently to [facility] for evaluation of. He was admitted there from January 31- for heart failure exacerbation with postobstructive pneumonia secondary to lung cancer and subacute stroke with delirium. He had 2 other admissions in late January and from 02/18-02/24 with respiratory failure and confusion. His lung CA will be treated as outpatient. He had minimal hypercalcemia during admission, with discharge calcium 10.5. His calcium was 11.3 on February 25, the first day of his admission to [facility]. On arrival to the ER, he received 1 L normal saline. He is also on Lasix daily oral dose. Today calcium down to 13.2. He denies musculoskeletal pain or constipation or polyuria. does have a poorer appetite; denies sob or edema. Allergies Allergy/AdvReac Type Severity Reaction Status Date / Time No Known Allergies Allergy Verified 02/28/22 16:33 Home Medications Medication Instructions Recorded Confirmed Type Oxygen Home 02/03/22 02/28/22 History aspirin 81 mg tablet,delayed 81 mg PO DAILY 02/03/22 02/28/22 History release atorvastatin 40 mg tablet 40 mg PO QDD 02/03/22 02/28/22 History clopidogrel 75 mg tablet 75 mg PO DAILY 02/03/22 02/28/22 History furosemide 40 mg tablet 40 mg PO DAILY 02/03/22 02/28/22 History metformin 1,000 mg tablet 1,000 mg PO BIDM 02/03/22 02/28/22 History metoprolol succinate 50 mg 50 mg PO BID 02/03/22 02/28/22 History tablet,extended release 24 hr acetaminophen 325 mg tablet 650 mg PO Q4H PRN 02/28/22 02/28/22 History (Tylenol) bisacodyl 10 mg rectal suppository 10 mg [place] DAILY PRN 02/28/22 02/28/22 History docusate sodium 100 mg capsule 100 mg PO BID 02/28/22 02/28/22 History enoxaparin 40 mg/0.4 mL 40 mg SUBCUT DAILY 02/28/22 02/28/22 History subcutaneous syringe fluticasone furoate 100 1 inh INHALATION DAILY 02/28/22 02/28/22 History mcg-vilanterol 25 mcg/dose inhalation powder (Breo Ellipta) insulin NPH isoph U-100 human 30 units SC BIDWMEAL 02/28/22 02/28/22 History insulin regular human 100 unit/mL 1 sliding scale dose SUBCUT ACHS 02/28/22 02/28/22 History injection solution (Humulin R Regular U-100 Insulin) ipratropium 20 mcg-albuterol 100 1 puff INHALATION QID PRN 02/28/22 02/28/22 History mcg/actuation mist for inhalation (Combivent Respimat) magnesium hydroxide 400 mg/5 mL 30 ml PO DAILY PRN 02/28/22 02/28/22 History oral suspension (Milk of Magnesia) polyethylene glycol 3350 17 17 g PO QDL PRN 02/28/22 02/28/22 History gram/dose oral powder (Miralax) sennosides 8.6 mg-docusate sodium 1 tab-cap PO QDL PRN 02/28/22 02/28/22 History 50 mg tablet (Senokot-S) Patient History Medical History CAD (coronary artery disease) Chronic HFrEF (heart failure with reduced ejection fraction) Chronic respiratory failure COPD (chronic obstructive pulmonary disease) CVA (cerebral vascular accident) CVA (cerebral vascular accident) Ischemic cardiomyopathy Pulmonary HTN Squamous cell carcinoma of lung T2DM (type 2 diabetes mellitus) Surgical History Hx of coronary artery bypass graft x4CABG, CANNON, EVH performed by Wild Kumar MD at OR [facility] Family History Father , 58 Lymphoma Mother Depression Alcohol abuse Social History Smoking Status: Never smoker Tobacco Type: Cigarettes packs per day: 1; Years Smoked: 47; Do You Dip or Chew Tobacco: No; Hx Alcohol Use: No Hx Substance Use: No Preferred Language: Iraqi Communication Ability: Effective 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 Beliefs That Will Affect Care: None marital status: Current Living Situation: Spouse Other Information That Helps Us Care for You: No Feels Safe at Home: Yes Safety Concerns: Feels Safe At This Time Assistive Devices: None Review of Systems Review of Systems: All systems reviewed & are unremarkable except as noted in HPI & below Physical Exam Constitutional: well developed, + frail appearing, + disheveled and + malnourished; no acute distress Eyes: EOM intact bilaterally ENMT: Ears: no external ear abnormality Nose: no external nose abnormality Mouth: + dry oral mucous membranes and + poor dentition Neck: no nuchal rigidity Respiratory: normal respiratory effort Auscultation: + diminished lung sounds Cardiovascular: Rate/Rhythm: regular rhythm and + tachycardic Extremities: no edema Gastrointestinal (Abdomen): Inspection/Auscultation: normal bowel sounds Percussion/Palpation: abdomen soft; abdomen nontender Musculoskeletal: Extremities: strength 5/5 throughout Skin: no rashes, warm and dry Neurologic: reaves, fluent speech, psychomotor slowing notable; no tremor Psychiatric: Orientation: oriented to person and oriented to place Genitourinary: no deras Results & Data ([facility]) Vital Signs (Past 12 Hours) Vital Signs Temp Pulse Pulse Resp BP Pulse Ox 03/01/22 17:07 95 H 03/01/22 15:29 36.4 C L 103 H 19 105/67 99 03/01/22 11:21 36.9 C 110 H 16 104/53 L 89 L 03/01/22 07:30 103 H 03/01/22 07:27 36.9 C 107 H 16 97/62 L 95 Laboratory Results 03/01/22 06:01 03/01/22 13:15 Labs from this morning: Calcium 13.2, Phos 2.7, ionized calcium yesterday 1.53, PTH 5; 1, 25 dihydroxy vitamin D pending Diagnostic Findings CT angiography thorax PE protocol Lungs and pleura: Diffuse centrilobular emphysema is seen most prominent in the upper lobes. Diffuse scarring is recommended. Consolidation is seen in the right upper lobe. Heart and pericardium: Heart size is normal. No pericardial effusion. Vessels: No evidence of pulmonary embolism. Moderate atherosclerotic disease is seen. Mediastinum and carin: Unremarkable. Chest wall and lower neck: Unremarkable. Abdomen: Unremarkable. Bones: Old healed rib fractures are seen. IMPRESSION: 1. No evidence of pulmonary embolism. 2. A large focus of consolidation is in the right upper lobe. Emphysema and scarring is seen.
[2022-03-01] MEDS: ATORVASTATIN 40 MG TAB PO SCH (17:30)
[2022-03-01] MEDS ORDERED: ZOLEDRONIC ACID 4 MG in 0.9 % SODIUM CHLORIDE 100 ML IV ONE (17:54)
[2022-03-01] MEDS: SODIUM CHLORIDE 0.9% 1000ML 1,000 ML IV SCH (18:08)
[2022-03-01] MEDS: FUROSEMIDE INJ 20 MG/2 ML VIAL IV SCH ×2 (18:10→23:34)
[2022-03-01] MEDS: CALCITONIN SALMON 250 UNITS in SYRINGE 0 ML SQ SCH (19:58)
[2022-03-01] MEDS ORDERED: CALCITONIN SALMON 400 UNITS/2 ML SQ SCH ×2 (21:00)
[2022-03-01] MEDS: ENOXAPARIN INJ 40 MG/0.4 ML SYR SQ SCH (21:08)
--- NOTE | 2022-03-02 05:33 | Electrocardiogram Report ---
Test Reason : Blood Pressure : / mmHG Vent. Rate : 092 BPM Atrial Rate : 092 BPM P-R Int : 152 ms QRS Dur : 094 ms QT Int : 384 ms P-R-T Axes : 068 049 079 degrees QTc Int : 474 ms Poor data quality, interpretation may be adversely affected Normal sinus rhythm Right atrial enlargement Possible Inferior infarct , age undetermined Abnormal ECG No previous ECGs available Confirmed by Munir Golden ([id number]) on 03/02/2022 5:33:05 AM Referred By: REFERRED SELF Confirmed By:Munir Golden
[2022-03-02] MEDS: FUROSEMIDE INJ 20 MG/2 ML VIAL IV SCH ×2 (06:05→11:19)
[2022-03-02 06:22] LABS: BUN Creatinine Ratio 23.9 (10-20); Calcium 11.6 mg/dl (8.5-10.1); Est GFR (African American) 81.5 ml/min; Est GFR (Non-African American) 70.4 ml/min; Magnesium 1.5 mg/dl (1.7-2.4); Phosphorus 2.6 mg/dl (2.5-4.9)
[2022-03-02] MEDS ORDERED: MAGNESIUM SULFATE / D5W 1 GM/100 ML BAG IV ONE (07:30)
--- NOTE | 2022-03-02 08:11 | Hospitalist Progress Note ---
Date of Service March 02, 2022 Assessment & Plan (1) Hypercalcemia: (2) Elevated troponin: (3) Squamous cell carcinoma of lung: (4) Chronic HFrEF (heart failure with reduced ejection fraction): (5) T2DM (type 2 diabetes mellitus): (6) COPD (chronic obstructive pulmonary disease): (7) Pulmonary HTN: (8) Hx of coronary artery bypass graft: (9) CVA (cerebral vascular accident): Plan: Pt is a 66 y/o M with hx of CAD s/p CABG, HFrEF (15%), severe pulm HTN with hypoxia (on 2L), uncontrolled IDDM, COPD with hx of smoking, subacute L parietal lobe infarct, recent dx of squamous cell carcinoma of the lung brought in from [facility] for elevated calcium Hypercalcemia: -pts Ca++ was 11.3 upon discharge from [facility] -EKG showed slightly prolong QTc with NSR -not on any Ca++ supplement -Received 1 L of normal saline on admission - PTH 4.7 (low), ionized calcium and Vit D (pending) -due to dx of lung Cancer: if the PTH is normal or low - may need Spine imaging to r/o bone mets -Nephrology consulted, patient started on gentle IV fluids and IV Lasix, calcitonin and zoledronic acid Elevated WBC: -pt has chronic hx of elevated WBC -procal is neg and afebrile -not suspecting infection -will trend CBC Recent dx of R lung squamous cell carcinoma with hypoxia: -former smoker -on oxygen supplement - was scheduled to establish care with oncology - Dr. Paras Almazan ([facility]) -admitting provider discussed dx with pt and family they would like to proceed with treatment -palliative consult placed for goals of care discussion - CTA chest showed no PE - 03/02 -I contacted Dr. Almazan, who was able to review the patient's case. He is also willing to further discuss this with patient's daughter today over the phone. -Patient's prognosis remains very poor HFrEF and CAD s/p CABG: -trop is elevated -pt is asymptomatic and euvolemic -Hs trop on 02/19/22 was 40 --- on admission it is 29.4 -trop trended down -strict I/O -would consult cards if trop increased or Ca++ worsen COPD with hypoxia: -at home pt is on 2L -will continue home regimen Uncontrolled IDDM: - current A1c 10.3%, recent A1C of 11.1 -will continue home insulin regimen -hold metformin Subacute infarct with prior CVA: -no residual weakness -will continue statin, aspirin and Plavix -will get PT/OT -likely discharge back to [facility] (however daughter wishes to take pt to [place]) Diet:Cardiac and diabetic DVT PPx:Lovenox Code Status:FULL CODE Emergency Contact: Daughter (Shannon Scott [phone]) Admission and Anticipated Discharge Date Admission Date: February 28, 2022 Subjective Pt seen in follow up of hypercalcemia in the setting of recently diagnosed lung ca Patient is able to answer some simple questions appropriately. Pt currently denies fever, chills. He is on 4L of NC - which is above baseline. Denies chest pain, or worsening shortness of breath. Daughter is visiting from [place] and was planning to take the pt to [place] with her. Pt was supposed to establish care w/ oncology yesterday at [place]. I was able to contact oncologist, and discussed patient's case. Oncologist, Dr. Almazan, is also willing to talk to patient's daughter on the phone today. In addition, patient's daughter Shannon, discussed with the patient yesterday his CODE STATUS, and patient now wishes to be DNR/DNI, therefore CODE STATUS will be changed. Review of Systems Review of Systems: All systems reviewed & are unremarkable except as noted in Subjective Physical Exam Physical Exam: General: thin M inNAD HEENT:.Normocephalic and atraumatic, Normal Conjunctiva, EOMI, Sclera is non- icteric Lungs:No signs of respiratory distress, on 4L O2 via NC, no wheezing, +crackles Heart:.Normal S1, S2, no murmur Abdominal:.ND, Soft, NT MSK:.No LE edema Psych:.AAOx3, normal affect Results & Data Results & Data ([facility]) Vital Signs (Past 12 Hours) Vital Signs Temp Pulse Resp BP Pulse Ox 03/02/22 07:12 36.4 C L 91 H 22 126/73 100 03/02/22 04:34 36.6 C 103 H 24 113/72 03/01/22 23:30 36.8 C 106 H 22 122/68 99 Laboratory Results 03/02/22 03/02/22 03/02/22 Range/Units 07:28 05:34 05:34 Sodium 133 L (136-145) mmol/L Potassium 4.0 (3.5-5.1) mmol/L Chloride 93 L (98-107) mmol/L Carbon Dioxide 32 (21-32) mmol/L Anion Gap 8 (3-11) BUN 26 H (6-23) mg/dl Creatinine 1.09 (0.6-1.4) mg/dl Est Cr Clr Drug Dosing 58.0 ml/min Est GFR ( Amer) 81.5 ml/min Est GFR (Non-Af Amer) 70.4 ml/min BUN/Creatinine Ratio 23.9 H (10-20) Glucose 211 H (70-99(Fasting)) mg/dl POC Glucose 238 H (70-99) mg/dl Calcium 11.6 H (8.5-10.1) mg/dl Phosphorus 2.6 (2.5-4.9) mg/dl Magnesium 1.5 L (1.7-2.4) mg/dl 25-OH Vitamin D Total 8.4 L (30-100) ng/ml 03/01/22 03/01/22 03/01/22 Range/Units 21:05 16:21 13:15 Sodium 134 L (136-145) mmol/L Potassium 4.5 (3.5-5.1) mmol/L Chloride 94 L (98-107) mmol/L Carbon Dioxide 33 H (21-32) mmol/L Anion Gap 7 (3-11) BUN 24 H (6-23) mg/dl Creatinine 1.10 (0.6-1.4) mg/dl Est Cr Clr Drug Dosing 57.5 ml/min Est GFR ( Amer) 80.6 ml/min Est GFR (Non-Af Amer) 69.6 ml/min BUN/Creatinine Ratio 21.8 H (10-20) Glucose 137 H (70-99(Fasting)) mg/dl POC Glucose 162 H 124 H (70-99) mg/dl Calcium 13.2 H* (8.5-10.1) mg/dl Phosphorus (2.5-4.9) mg/dl Magnesium (1.7-2.4) mg/dl 25-OH Vitamin D Total (30-100) ng/ml 03/01/22 03/01/22 Range/Units 11:27 06:01 Sodium (136-145) mmol/L Potassium (3.5-5.1) mmol/L Chloride (98-107) mmol/L Carbon Dioxide (21-32) mmol/L Anion Gap (3-11) BUN (6-23) mg/dl Creatinine (0.6-1.4) mg/dl Est Cr Clr Drug Dosing ml/min Est GFR ( Amer) ml/min Est GFR (Non-Af Amer) ml/min BUN/Creatinine Ratio (10-20) Glucose (70-99(Fasting)) mg/dl POC Glucose 122 H (70-99) mg/dl Calcium (8.5-10.1) mg/dl Phosphorus 2.7 (2.5-4.9) mg/dl Magnesium (1.7-2.4) mg/dl 25-OH Vitamin D Total (30-100) ng/ml Medications Administered Current Inpatient Medications Acetaminophen (Acetaminophen 325 Mg Tab) 650 mg PO Q4H PRN PRN Reason: Pain or Fever Stop: 03/30/22 18:30 Al Hydrox/Mg Hydrox/Simethicone (Aluminum/Magnesium Susp 30 Ml Udc) 15 ml PO Q4H PRN PRN Reason: Dyspepsia Stop: 03/30/22 18:30 Albuterol (Albuterol Hfa 8 Gm Inhaler (Combivent Respimat P&T Subs)) 1 puffs INH QIDR PRN PRN Reason: Shortness Of Breath Or Wheezing Stop: 03/30/22 19:25 Aspirin (Aspirin 81 Mg Ectab) 81 mg PO DAILY [facility] Stop: 03/31/22 08:59 Last Admin: 03/01/22 07:40 Dose: 81 mg Documented by: Atorvastatin Calcium (Atorvastatin 40 Mg Tab) 40 mg PO QDD [facility] Stop: 03/31/22 16:29 Last Admin: 03/01/22 17:30 Dose: 40 mg Documented by: Bisacodyl (Bisacodyl 10 Mg Supp) 10 mg [place] DAILY PRN PRN Reason: Constipation Stop: 03/30/22 18:34 Clopidogrel Bisulfate (Clopidogrel Bisulfate 75 Mg Tab) 75 mg PO DAILY [facility] Stop: 03/31/22 08:59 Last Admin: 03/01/22 07:39 Dose: 75 mg Documented by: Dextrose (Dextrose 50% 50 Ml Syringe) 25 - 50 ml IV UD PRN; Protocol PRN Reason: Hypoglycemia Protocol Stop: 03/30/22 18:30 Docusate Sodium (Docusate Sodium 100 Mg Cap) 100 mg PO BID JEREMY Stop: 03/30/22 20:59 Last Admin: 03/01/22 20:01 Dose: Not Given Documented by: Enoxaparin Sodium (Enoxaparin Inj 40 Mg/0.4 Ml Syr) 40 mg SQ Q24H JEREMY Stop: 03/30/22 21:59 Last Admin: 03/01/22 21:08 Dose: Not Given Documented by: Fluticasone/Vilanterol (Fluticasone/Vilanterol 100/25mcg 14 Puffs/Inhaler) 1 puffs INH DAILY JEREMY Stop: 03/31/22 08:59 Last Admin: 03/01/22 07:41 Dose: 1 puffs Documented by: Furosemide (Furosemide Inj 20 Mg/2 Ml Vial) 10 mg IV Q6 JEREMY Stop: 03/31/22 17:59 Last Admin: 03/02/22 06:05 Dose: 10 mg Documented by: Glucagon (Glucagon For Inj 1 Mg Vial) 1 mg SQ UD PRN; Protocol PRN Reason: Hypoglycemia Protocol Stop: 03/30/22 18:30 Glucose (Glucose 10 Tabs/Tube) 4 - 8 tabs PO UD PRN; Protocol PRN Reason: Hypoglycemia Protocol Stop: 03/30/22 18:30 Glucose (Glucose 40% Gel 15 Gm Tube) 15 - 30 gm PO UD PRN; Protocol PRN Reason: Hypoglycemia Protocol Stop: 03/30/22 18:30 Sodium Chloride (Nss 1000ml) 1,000 mls @ 60 mls/hr IV .[id number] [facility] Stop: 03/31/22 17:59 Last Admin: 03/01/22 18:08 Dose: 60 mls/hr Documented by: Calcitonin [place] 250 units/ (Syringe) 1.25 mls @ 0 mls/sec SQ Q12 JEREMY Stop: 03/31/22 17:59 Last Admin: 03/01/22 19:58 Dose: 1 mls/sec Documented by: Magnesium Sulfate/Dextrose (Magnesium Sulfate / D5w) 1 gm in 100 mls @ 50 mls/hr IV ONE ONE Stop: 03/02/22 09:29 Insulin Aspart (Insulin Aspart Per Unit) 0 units SC ACHS [facility] Stop: 03/30/22 20:59 Last Admin: 03/01/22 21:07 Dose: Not Given Documented by: Insulin Glargine (Insulin Glargine Solostar 100 Units/Ml 3 Ml Pen) 7 units SC QAM [facility] Stop: 04/01/22 08:59 Ipratropium Sylvester (Ipratropium Hfa Inhaler (Combivent Respimat P&T Subs)) 1 puffs INH QIDR PRN PRN Reason: Shortness Of Breath Or Wheezing Stop: 03/30/22 19:25 Magnesium Hydroxide (Magnesium Hydroxide Susp 30 Ml Udc) 30 ml PO Q12H PRN PRN Reason: Constipation Stop: 03/30/22 18:30 Magnesium Oxide (Magnesium Oxide 400 Mg Tab) 400 mg PO BID [facility] Stop: 04/01/22 08:59 Metoprolol Succinate (Metoprolol Succ 50mg Ext Rel Tab) 50 mg PO BID [facility] Stop: 03/30/22 20:59 Last Admin: 03/01/22 20:01 Dose: 50 mg Documented by: Miscellaneous (Carbohydrates For Hypoglycemia ) 15 - 30 gm PO UD PRN PRN Reason: Hypoglycemia Protocol Stop: 03/30/22 18:30 Miscellaneous Information (Pharmacy Glycemic Mgmt Consult) 1 ea N/A UD PRN; Protocol PRN Reason: Consult Stop: 03/30/22 18:30 Ondansetron HCl (Ondansetron Inj 2 Mg/Ml 2 Ml Vial) 4 mg IV Q6H PRN PRN Reason: Nausea Stop: 03/30/22 18:30 Polyethylene Glycol (Polyethylene (Miralax) 17 Gm Pack) 17 gm PO QDL PRN PRN Reason: Constipation Stop: 03/30/22 18:34 Senna/Docusate Sodium (Docusate Sodium/Senna 50/8.6mg Tab) 1 tab PO QDL PRN PRN Reason: Constipation Stop: 03/30/22 18:34
[2022-03-02] MEDS: CLOPIDOGREL BISULFATE 75 MG TAB PO SCH (08:32)
[2022-03-02] MEDS: DOCUSATE SODIUM 100 MG CAP PO SCH (08:33)
[2022-03-02] MEDS: METOPROLOL SUCC 50MG EXT REL TAB PO SCH (08:33)
[2022-03-02] MEDS: ASPIRIN 81 MG ECTAB PO SCH (08:33)
[2022-03-02] MEDS: FLUTICASONE/VILANTEROL 100/25MCG 14 PUFFS/INHALER INH SCH (08:34)
[2022-03-02] MEDS: INSULIN ASPART PER UNIT SC SCH ×3 (08:38→17:39)
[2022-03-02] MEDS: CALCITONIN SALMON 250 UNITS in SYRINGE 0 ML SQ SCH (08:46)
[2022-03-02] MEDS ORDERED: MAGNESIUM OXIDE 400 MG TAB PO SCH (09:00)
[2022-03-02] MEDS ORDERED: INSULIN GLARGINE SOLOSTAR 100 UNITS/ML 3 ML PEN SC SCH ×2 (09:00→21:00)
[2022-03-02] MEDS: SODIUM CHLORIDE 0.9% 1000ML 1,000 ML IV SCH (11:16)
--- NOTE | 2022-03-02 12:03 | Palliative Care Consultation ---
Date of Consultation March 02, 2022 Assessment & Plan (1) Palliative care encounter: Mr. Sanchez is a 66 year old male who presented to the [facility] from [facility] with hypercalcemia. Additional PMH includes: CAD s/p CABG, CHF EF 15%, severe pulmonary HTN, IDDM, and COPD. He was recently unfortunately diagnosed with squamous cell carcinoma of the lung which [facility] and it was discovered after he underwent a lung biopsy. Unfortunately, the patients cancer is quite progressive and after the family has spoken with the oncologist, they would like to proceed with a conservative approach to his care. Palliative Medicine was consulted to discuss overall goals of care. I met with the patients daughter, Shannon, and her significant other, Dave, in the hallway by her fathers room. She is due to return back to [place] tomorrow. She has indicated that her father has been having intermittent periods of wake/sleep and has not eaten anything over the past 2 days. Additionally, she said that after talking to the oncologist that they have decided that based on the aggressiveness of the tumor, that they would like to focus on a more comfort focused approach to his care. The patient was sleeping and not interactive when I was in the room. He did open his eyes slightly to verbal stimuli, but no meaningful interaction. Goal is to discontinue all non essential medications, including blood work and lab work. I set the expectation that we can observe his progress to determine if he will continue to remain in the hospital vs be discharged to a SNF with hospice. Palliative will follow. (2) Squamous cell carcinoma of lung: (3) Hypoxia: History of Present Illness Reason for Consultation: Goals of care Requesting Physician: Dr. Holt Attending Physician: Fermin Chen MD History of Present Illness Mr. Sanchez is a 66 year old male who presented to the [facility] from [facility] with hypercalcemia. Additional PMH includes: CAD s/p CABG, CHF EF 15%, severe pulmonary HTN, IDDM, and COPD. He was recently unfortunately diagnosed with squamous cell carcinoma of the lung which was discovered recently at [facility] and it was discovered after he underwent a lung bio psy. Unfortunately, the patients cancer is quite progressive and after the family has spoken with the oncologist, they would like to proceed with a conservative approach to his care. Palliative Medicine was consulted to discuss overall goals of care. Please see A/P for further details. Thank you for involving Palliative Medicine with this patient. Allergies Allergy/AdvReac Type Severity Reaction Status Date / Time No Known Allergies Allergy Verified 02/28/22 16:33 Home Medications Medication Instructions Recorded Confirmed Type Oxygen Home 02/03/22 02/28/22 History aspirin 81 mg tablet,delayed 81 mg PO DAILY 02/03/22 02/28/22 History release atorvastatin 40 mg tablet 40 mg PO QDD 02/03/22 02/28/22 History clopidogrel 75 mg tablet 75 mg PO DAILY 02/03/22 02/28/22 History furosemide 40 mg tablet 40 mg PO DAILY 02/03/22 02/28/22 History metformin 1,000 mg tablet 1,000 mg PO BIDM 02/03/22 02/28/22 History metoprolol succinate 50 mg 50 mg PO BID 02/03/22 02/28/22 History tablet,extended release 24 hr acetaminophen 325 mg tablet 650 mg PO Q4H PRN 02/28/22 02/28/22 History (Tylenol) bisacodyl 10 mg rectal suppository 10 mg [place] DAILY PRN 02/28/22 02/28/22 History docusate sodium 100 mg capsule 100 mg PO BID 02/28/22 02/28/22 History enoxaparin 40 mg/0.4 mL 40 mg SUBCUT DAILY 02/28/22 02/28/22 History subcutaneous syringe fluticasone furoate 100 1 inh INHALATION DAILY 02/28/22 02/28/22 History mcg-vilanterol 25 mcg/dose inhalation powder (Breo Ellipta) insulin NPH isoph U-100 human 30 units SC BIDWMEAL 02/28/22 02/28/22 History insulin regular human 100 unit/mL 1 sliding scale dose SUBCUT ACHS 02/28/22 02/28/22 History injection solution (Humulin R Regular U-100 Insulin) ipratropium 20 mcg-albuterol 100 1 puff INHALATION QID PRN 02/28/22 02/28/22 History mcg/actuation mist for inhalation (Combivent Respimat) magnesium hydroxide 400 mg/5 mL 30 ml PO DAILY PRN 02/28/22 02/28/22 History oral suspension (Milk of Magnesia) polyethylene glycol 3350 17 17 g PO QDL PRN 02/28/22 02/28/22 History gram/dose oral powder (Miralax) sennosides 8.6 mg-docusate sodium 1 tab-cap PO QDL PRN 02/28/22 02/28/22 History 50 mg tablet (Senokot-S) Patient History Medical History (Updated 03/02/22 @ 18:21 by BEL Chang) CAD (coronary artery disease) Chronic HFrEF (heart failure with reduced ejection fraction) Chronic respiratory failure COPD (chronic obstructive pulmonary disease) CVA (cerebral vascular accident) CVA (cerebral vascular accident) Hypoxia Ischemic cardiomyopathy Palliative care encounter Pulmonary HTN Squamous cell carcinoma of lung T2DM (type 2 diabetes mellitus) Surgical History Hx of coronary artery bypass graft x4CABG, CANNON, EVH performed by Wild Kumar MD at OR [facility] Family History Father , 58 Lymphoma Mother Depression Alcohol abuse Social History Smoking Status: Never smoker Tobacco Type: Cigarettes packs per day: 1; Years Smoked: 47; Do You Dip or Chew Tobacco: No; Hx Alcohol Use: No Hx Substance Use: No Preferred Language: Burundian Communication Ability: Effective Performing Arts [employer] Manager Required: No Beliefs That Will Affect Care: None marital status: Current Living Situation: Spouse Other Information That Helps Us Care for You: No Feels Safe at Home: Yes Safety Concerns: Feels Safe At This Time Assistive Devices: None Results & Data ([facility]) Vital Signs (Past 12 Hours) Vital Signs Temp Pulse Pulse Resp BP Pulse Ox 03/02/22 07:30 93 H 03/02/22 07:12 36.4 C L 91 H 22 126/73 100 03/02/22 04:34 36.6 C 103 H 24 113/72 PG Care Time/CCT Total # of Minutes Spent Total Time Spent with Patient: Total time spent is greater than 50% in coordination of care (as documented) at patient's floor/unit and/or counseling patient: 70 minutes Coding Level of Care Code 08970 Initial Inpt Care Lvl 3 Diagnoses Palliative care encounter Z51.5 Squamous cell carcinoma of lung C34.90 Hypoxia R09.02 Time Spent (min) 70
--- NOTE | 2022-03-02 12:08 | Pharmacy Report ---
Pharmacy Glycemic Short Note 2 - Date of Service March 02, 2022 - Glycemic Short BSG Results (Last 24 hours): 03/01/22 03/01/22 03/01/22 13:15 16:21 21:05 Glucose 137 H POC Glucose 124 H 162 H 03/02/22 03/02/22 03/02/22 05:34 07:28 11:25 Glucose 211 H POC Glucose 238 H 192 H OUTPATIENT ANTIDIABETIC REGIMEN: * NPH 30 units SQ BID * Regular insulin per SS * Metformin 1gm BID * A1c = 11.1% 02/11/22 ASSESSMENT: 03/02: * BSGs in last 24hr: [phone]. Fasting BSG this AM elevated to 238mg/dL. Patient received a total of 5 units of basal insulin yesterday. Did not receive bolus insulin. * Ordered a diet, however he is still not eating well. No carb intake has been documented and confirmed with RN. * Given increased fasting BSG this AM, increased Lantus dose cautiously this AM to 7 units and ordered an HS scale depending on BSG (no additional basal if HS BSG less than 120mg/dL) * No adjustments to Novolog. 03/01: * Type 2 diabetic admitted for hypercalcemia * Thus far BSGs have been well controlled, despite receiving no basal or rapid acting insulin. However given A1c, it is likely patient is going to require some basal and prandial insulin once diet advances. * Will begin low dose basal insulin per scale at this time, no basal will be provided unless BSG > 110. Lantus will be used instead of NPH to avoid "peaks" * Novolog doses will be based upon weight and "moderate" stress level PLAN FOR INPATIENT GLYCEMIC CONTROL: * Hold outpatient oral diabetes medications (metformin) * Basal insulin * Lantus 7 units qAM, HS scale * Bolus insulin * NovoLog per scale ACHS or Q6hrs while NPO * Goal Range: Low 110 mg/dL - High 140 mg/dL * Correction Factor: 35 mg/dL/unit * Nutritional / Prandial insulin per carb ratio of 1 unit per 12 grams CHO consumed
--- NOTE | 2022-03-02 13:36 | XRay Report ---
XR chest 1V portable HISTORY: 66 years-old Male incr. O2 requirement acute hypoxia COMPARISON: Chest radiograph and CTA chest 02/28/2022 TECHNIQUE: Portable AP view of the chest FINDINGS: Cardiomediastinal and hilar silhouettes are unchanged. Prior median sternotomy. No pneumothorax. Segm ental consolidation of the right upper lobe redemonstrated. Emphysema with chronic interstitial coars ening. No large pleural effusion or overt pulmonary edema. Degenerative changes of the shoulders and spine. IMPRESSION: 1. Right upper lobe consolidation which is better characterized on the 02/28/2022 CTA of the chest. Wh ile this may represent pneumonia, short-term follow-up after treatment course is recommended to exclu de an underlying neoplasm. Continued follow-up is needed. 2. Right hilar adenopathy. 3. Emphysema. ACT 112: Negative or not required by law. The above report was generated using voice recognition software. It may contain grammatical, syntax o r spelling errors. Electronically signed by: Basil Brennan M.D. 03/02/2022 1:35 PM
--- NOTE | 2022-03-02 13:36 | Hospitalist Progress Note ---
Date of Service March 02, 2022 Assessment & Plan Admission and Anticipated Discharge Date Admission Date: February 28, 2022 Subjective Discussed with patient's daughter Shannon, that when she was visiting yesterday with her father, they had a conversation about CODE STATUS, and patient wishes now to change his CODE STATUS to DNR/DNI. Results & Data Results & Data ([facility]) Vital Signs (Past 12 Hours) Vital Signs Temp Pulse Pulse Resp BP Pulse Ox 03/02/22 12:31 36.5 C 87 18 115/68 100 03/02/22 07:30 93 H 03/02/22 07:12 36.4 C L 91 H 22 126/73 100 03/02/22 04:34 36.6 C 103 H 24 113/72
[2022-03-02] MEDS ORDERED: FUROSEMIDE INJ 20 MG/2 ML VIAL IV SCH (16:29)
--- NOTE | 2022-03-02 16:30 | Nephrology Progress Note ---
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 Management complicated by severely reduced ejection fraction ordered 25 hydroxy vitamin D level with labs in the morning > low -ordered bmp to be repeated now -agree w/ holding saline despite no worsening OL on CXR; will increase lasix dose to 20 mg IV q6h cont intramuscular calcitonin 4 units per kg every 12 hours > to end tomorrow PM oon 03/01 had zoledronic acid 4 mg IV x1 Daily basic metabolic panel - some risk for YUNG after IV contrast , at least in theory but so far no evidence Admission and Anticipated Discharge Date Admission Date: February 28, 2022 Subjective worsening hypoxia > from 2L this am to 4L this pm. minimally interactive/participating in ros > denies worse sob, uncontrolled pain, constipation, voiding concerns Review of Systems Review of Systems: All systems reviewed & are unremarkable except as noted in Subjective Physical Exam Constitutional: well developed, + frail appearing, + disheveled and + malnourished; no acute distress Eyes: EOM intact bilaterally ENMT: Ears: no external ear abnormality Nose: no external nose abnormality Mouth: + dry oral mucous membranes and + poor dentition Neck: no nuchal rigidity Respiratory: normal respiratory effort and + cough Auscultation: + diminished lung sounds and + crackles Cardiovascular: Rate/Rhythm: regular rate and regular rhythm Extremities: no edema Gastrointestinal (Abdomen): Inspection/Auscultation: normal bowel sounds Percussion/Palpation: abdomen soft; abdomen nontender Musculoskeletal: Extremities: strength 5/5 throughout Skin: no rashes, warm and dry Neurologic: fatigued, even lethargic; reaves; fluent but limited speech Psychiatric: Orientation: oriented to person and oriented to place Results & Data ([facility]) Vital Signs (Past 12 Hours) Vital Signs Temp Pulse Pulse Resp BP Pulse Ox 03/02/22 12:31 36.5 C 87 18 115/68 100 03/02/22 07:30 93 H 03/02/22 07:12 36.4 C L 91 H 22 126/73 100 03/02/22 04:34 36.6 C 103 H 24 113/72 Laboratory Results 03/01/22 06:01 03/02/22 05:34 Ca 11.6 Diagnostic Findings CXR this pm Cardiomediastinal and hilar silhouettes are unchanged. Prior median sternotomy. No pneumothorax. Segmental consolidation of the right upper lobe redemonstrated. Emphysema with chronic interstitial coarsening. No large pleural effusion or overt pulmonary edema. Degenerative changes of the shoulders and spine. IMPRESSION: 1. Right upper lobe consolidation which is better characterized on the 02/28/2022 CTA of the chest. While this may represent pneumonia, short-term follow-up after treatment course is recommended to exclude an underlying neoplasm. Continued follow-up is needed. 2. Right hilar adenopathy. 3. Emphysema.
[2022-03-02] MEDS: ATORVASTATIN 40 MG TAB PO SCH (17:40)
[2022-03-02] MEDS ORDERED: MoRPHine SULFATE 2 MG/ML CARP IV PRN (21:19)
[2022-03-02] MEDS ORDERED: LORazepam 2 MG/1 ML VIAL IV PRN (21:19)
[2022-03-03] MEDS ORDERED: INSULIN ASPART PER UNIT SC SCH (02:00)
[2022-03-03 07:49] LABS: BUN Creatinine Ratio 20.4 (10-20); Calcium 10.6 mg/dl (8.5-10.1); Creatinine Clr Calc Pharmacy 61.4 ml/min; Est GFR (African American) 87.3 ml/min; Est GFR (Non-African American) 75.3 ml/min; Magnesium 1.7 mg/dl (1.7-2.4); Phosphorus 1.9 mg/dl (2.5-4.9); Potassium 3.6 mmol/L (3.5-5.1)
--- NOTE | 2022-03-03 18:59 | Hospitalist Progress Note ---
Date of Service March 03, 2022 Assessment & Plan (1) Hypercalcemia: (2) Elevated troponin: (3) Squamous cell carcinoma of lung: (4) Chronic HFrEF (heart failure with reduced ejection fraction): (5) T2DM (type 2 diabetes mellitus): (6) COPD (chronic obstructive pulmonary disease): (7) Pulmonary HTN: (8) Hx of coronary artery bypass graft: (9) CVA (cerebral vascular accident): Plan: Pt is a 66 y/o M with hx of CAD s/p CABG, HFrEF (15%), severe pulm HTN with hypoxia (on 2L), uncontrolled IDDM, COPD with hx of smoking, subacute L parietal lobe infarct, recent dx of squamous cell carcinoma of the lung brought in from [facility] for elevated calcium Recent dx of R lung squamous cell carcinoma with hypoxia: -former smoker - CTA chest showed no PE -on oxygen supplement - was scheduled to establish care with oncology - Dr. Paras Almazan ([facility]) -palliative consult placed for goals of care discussion -I contacted Dr. Almazan, who was able to review the patient's case and also discussed this with patient's daughter over the phone. Patient's prognosis remains very poor. After their conversation, patient's daughter wished to change patient's status to comfort care. Hypercalcemia: -pts Ca++ was 11.3 upon discharge from [facility] -EKG showed slightly prolong QTc with NSR -not on any Ca++ supplement -Received 1 L of normal saline on admission - PTH 4.7 (low), ionized calcium and Vit D (pending) -due to dx of lung Cancer: if the PTH is normal or low - may need Spine imaging to r/o bone mets -Nephrology consulted, patient started on gentle IV fluids and IV Lasix, calcitonin and zoledronic acid - pt is now comfort care and so all the unnecessary medications were discontinued Elevated WBC: -pt has chronic hx of elevated WBC -procal is neg and afebrile -not suspecting infection -trend CBC - stopped labs, as pt's status changed to comfort care Chronic conditions COPD with hypoxia: -at home pt is on 2L -will continue home regimen HFrEF and CAD s/p CABG: -trop is elevated -pt is asymptomatic and euvolemic -Hs trop on 02/19/22 was 40 --- on admission it is 29.4 -trop trended down -strict I/O -would consult cards if trop increased or Ca++ worsen - pt is now comfort care status Uncontrolled IDDM: - current A1c 10.3%, recent A1C of 11.1 -will continue home insulin regimen -hold metformin -stopped unnecessary medications as pt is now comfort care Subacute infarct with prior CVA: -no residual weakness -was on statin, aspirin and Plavix, these were stopped as pt is now comfort care Diet:Cardiac and diabetic DVT PPx:Lovenox Code Status:FULL CODE Emergency Contact: Daughter (Shannon Scott [phone]) Admission and Anticipated Discharge Date Admission Date: February 28, 2022 Subjective Pt seen in follow up of hypercalcemia in the setting of recently diagnosed lung ca Patient is able to answer some simple questions appropriately. Pt currently denies fever, chills, chest pain, or worsening shortness of breath. I was able to contact oncologist, and discussed patient's case. Oncologist, Dr. Almazan, also talked to the patient's daughter on the phone. After their conversation, patient's daughter would like to have patient' status changed to comfort care. Palliative medicine following. Review of Systems Review of Systems: All systems reviewed & are unremarkable except as noted in Subjective Physical Exam Physical Exam: General: thin M inNAD HEENT:.Normocephalic and atraumatic, Normal Conjunctiva, EOMI, Sclera is non- icteric Lungs:No signs of respiratory distress, on suppl. O2 via NC, no wheezing, +mild crackles Heart:.Normal S1, S2, no murmur Abdominal:.ND, Soft, NT MSK:.No LE edema Neurp/Psych: Awake and alert, able to answer some questions appropriately. Speech fluent, no facial asymmetry, moves extremities Results & Data Results & Data ([facility]) Vital Signs (Past 12 Hours) Vital Signs Temp Pulse Resp BP Pulse Ox 03/03/22 12:25 36.6 C 105 H 22 119/67 90 03/03/22 08:00 37 C 106 H 20 93/57 L 98 Laboratory Results 03/03/22 03/03/22 03/03/22 Range/Units 11:37 07:12 06:57 Sodium 134 L (136-145) mmol/L Potassium 3.6 (3.5-5.1) mmol/L Chloride 95 L (98-107) mmol/L Carbon Dioxide 30 (21-32) mmol/L Anion Gap 9 (3-11) BUN 21 (6-23) mg/dl Creatinine 1.03 (0.6-1.4) mg/dl Est Cr Clr Drug Dosing 61.4 ml/min Est GFR ( Amer) 87.3 ml/min Est GFR (Non-Af Amer) 75.3 ml/min BUN/Creatinine Ratio 20.4 H (10-20) Glucose 201 H (70-99(Fasting)) mg/dl POC Glucose 189 H 204 H (70-99) mg/dl Calcium 10.6 H (8.5-10.1) mg/dl Phosphorus 1.9 L (2.5-4.9) mg/dl Magnesium 1.7 (1.7-2.4) mg/dl 03/02/22 Range/Units 20:49 Sodium (136-145) mmol/L Potassium (3.5-5.1) mmol/L Chloride (98-107) mmol/L Carbon Dioxide (21-32) mmol/L Anion Gap (3-11) BUN (6-23) mg/dl Creatinine (0.6-1.4) mg/dl Est Cr Clr Drug Dosing ml/min Est GFR ( Amer) ml/min Est GFR (Non-Af Amer) ml/min BUN/Creatinine Ratio (10-20) Glucose (70-99(Fasting)) mg/dl POC Glucose 211 H (70-99) mg/dl Calcium (8.5-10.1) mg/dl Phosphorus (2.5-4.9) mg/dl Magnesium (1.7-2.4) mg/dl Medications Administered Current Inpatient Medications Acetaminophen (Acetaminophen 325 Mg Tab) 650 mg PO Q4H PRN PRN Reason: Pain or Fever Stop: 03/30/22 18:30 Bisacodyl (Bisacodyl 10 Mg Supp) 10 mg [place] DAILY PRN PRN Reason: Constipation Stop: 03/30/22 18:34 Glucose (Glucose 40% Gel 15 Gm Tube) 15 - 30 gm PO UD PRN; Protocol PRN Reason: Hypoglycemia Protocol Stop: 03/30/22 18:30 Lorazepam (Lorazepam 2 Mg/1 Ml Vial) 0.5 mg IV Q4H PRN PRN Reason: agitation Stop: 04/01/22 21:18 Magnesium Hydroxide (Magnesium Hydroxide Susp 30 Ml Udc) 30 ml PO Q12H PRN PRN Reason: Constipation Stop: 03/30/22 18:30 Miscellaneous (Carbohydrates For Hypoglycemia ) 15 - 30 gm PO UD PRN PRN Reason: Hypoglycemia Protocol Stop: 03/30/22 18:30 Morphine Sulfate (Morphine Sulfate 2 Mg/Ml Carp) 1 mg IV Q6H PRN PRN Reason: Pain Stop: 03/16/22 21:18 Ondansetron HCl (Ondansetron Inj 2 Mg/Ml 2 Ml Vial) 4 mg IV Q6H PRN PRN Reason: Nausea Stop: 03/30/22 18:30 Senna/Docusate Sodium (Docusate Sodium/Senna 50/8.6mg Tab) 1 tab PO QDL PRN PRN Reason: Constipation Stop: 03/30/22 18:34
--- NOTE | 2022-03-03 19:31 | Nephrology Progress Note ---
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 Management complicated by severely reduced ejection fractionh cont intramuscular calcitonin 4 units per kg every 12 hours > to end today oon 03/01 had zoledronic acid 4 mg IV x1 Calcium almost in the normal range - no Iv fluids or lasix needed, Admission and Anticipated Discharge Date Admission Date: February 28, 2022 Subjective Somlonant , but arousable not in distress Passing urine Review of Systems Review of Systems: All systems reviewed & are unremarkable except as noted in HPI & below Physical Exam Physical Exam: General:thin,ill appearing HEENT:.Normocephalic and atraumatic, Normal Conjunctiva, EOMI, Sclera is non- icteric Lungs:No signs of respiratory distress, Heart:.Normal S1, S2, no murmur Abdominal:.ND, Soft, NT MSK:.No LE edema Psych:.AAOx3, normal affect Results & Data ([facility]) Vital Signs (Past 12 Hours) Vital Signs Temp Pulse Resp BP Pulse Ox 03/03/22 19:19 36.8 C 18 109/66 03/03/22 12:25 36.6 C 105 H 22 119/67 90 03/03/22 08:00 37 C 106 H 20 93/57 L 98 Laboratory Results 03/01/22 06:01 03/03/22 06:57
--- NOTE | 2022-03-04 08:31 | Hospitalist Progress Note ---
Date of Service March 04, 2022 Assessment & Plan (1) Hypercalcemia: (2) Elevated troponin: (3) Squamous cell carcinoma of lung: (4) Chronic HFrEF (heart failure with reduced ejection fraction): (5) T2DM (type 2 diabetes mellitus): (6) COPD (chronic obstructive pulmonary disease): (7) Pulmonary HTN: (8) Hx of coronary artery bypass graft: (9) CVA (cerebral vascular accident): Plan: Pt is a 66 y/o M with hx of CAD s/p CABG, HFrEF (15%), severe pulm HTN with hypoxia (on 2L), uncontrolled IDDM, COPD with hx of smoking, subacute L parietal lobe infarct, recent dx of squamous cell carcinoma of the lung brought in from [facility] for elevated calcium Recent dx of R lung squamous cell carcinoma with hypoxia: -former smoker - CTA chest showed no PE -on oxygen supplement - was scheduled to establish care with oncology - Dr. Paras Almazan ([facility]) -palliative consult placed for goals of care discussion -I contacted Dr. Almazan, who was able to review the patient's case and also discussed this with patient's daughter over the phone. Patient's prognosis remains very poor. After their conversation, patient's daughter wished to change patient's status to comfort care. Hypercalcemia: -pts Ca++ was 11.3 upon discharge from [facility] -EKG showed slightly prolong QTc with NSR -not on any Ca++ supplement -Received 1 L of normal saline on admission - PTH 4.7 (low), ionized calcium and Vit D (pending) -due to dx of lung Cancer: if the PTH is normal or low - may need Spine imaging to r/o bone mets -Nephrology consulted, patient started on gentle IV fluids and IV Lasix, calcitonin and zoledronic acid - pt is now comfort care and so all the unnecessary medications were discontinued Elevated WBC: -pt has chronic hx of elevated WBC -procal is neg and afebrile -not suspecting infection -trend CBC - stopped labs, as pt's status changed to comfort care Chronic conditions COPD with hypoxia: -at home pt is on 2L -will continue home regimen or as needed HFrEF and CAD s/p CABG: -trop is elevated -pt is asymptomatic and euvolemic -Hs trop on 02/19/22 was 40 --- on admission it is 29.4 -trop trended down -strict I/O -would consult cards if trop increased or Ca++ worsen - pt is now comfort care status Uncontrolled IDDM: - current A1c 10.3%, recent A1C of 11.1 -will continue home insulin regimen -hold metformin -stopped unnecessary medications as pt is now comfort care Subacute infarct with prior CVA: -no residual weakness -was on statin, aspirin and Plavix, these were stopped as pt is now comfort care Code Status: DNR/DNI Emergency Contact: Daughter (Shannon Scott [phone]) Admission and Anticipated Discharge Date Admission Date: February 28, 2022 Subjective Pt seen in follow up of hypercalcemia in the setting of recently diagnosed lung ca Patient is able to answer some simple questions appropriately. Talked about his family. Pt currently denies fever, chills, chest pain, or worsening shortness of breath. Only complains of thirst, water was provided to the pt. Review of Systems Review of Systems: All systems reviewed & are unremarkable except as noted in Subjective Physical Exam Physical Exam: General: thin M inNAD HEENT:.Normocephalic and atraumatic, Normal Conjunctiva, EOMI, Sclera is non- icteric Lungs:No signs of respiratory distress, on suppl. O2 via NC, no wheezing, +mild crackles Heart:.Normal S1, S2, no murmur Abdominal:.ND, Soft, NT MSK:.No LE edema Neurp/Psych: Awake and alert, able to answer some questions appropriately. Speech fluent, no facial asymmetry, moves extremities Results & Data Results & Data ([facility]) Medications Administered Current Inpatient Medications Acetaminophen (Acetaminophen 325 Mg Tab) 650 mg PO Q4H PRN PRN Reason: Pain or Fever Stop: 03/30/22 18:30 Bisacodyl (Bisacodyl 10 Mg Supp) 10 mg [place] DAILY PRN PRN Reason: Constipation Stop: 03/30/22 18:34 Glucose (Glucose 40% Gel 15 Gm Tube) 15 - 30 gm PO UD PRN; Protocol PRN Reason: Hypoglycemia Protocol Stop: 03/30/22 18:30 Lorazepam (Lorazepam 2 Mg/1 Ml Vial) 0.5 mg IV Q4H PRN PRN Reason: agitation Stop: 04/01/22 21:18 Magnesium Hydroxide (Magnesium Hydroxide Susp 30 Ml Udc) 30 ml PO Q12H PRN PRN Reason: Constipation Stop: 03/30/22 18:30 Miscellaneous (Carbohydrates For Hypoglycemia ) 15 - 30 gm PO UD PRN PRN Reason: Hypoglycemia Protocol Stop: 03/30/22 18:30 Morphine Sulfate (Morphine Sulfate 2 Mg/Ml Carp) 1 mg IV Q6H PRN PRN Reason: Pain Stop: 03/16/22 21:18 Ondansetron HCl (Ondansetron Inj 2 Mg/Ml 2 Ml Vial) 4 mg IV Q6H PRN PRN Reason: Nausea Stop: 03/30/22 18:30 Senna/Docusate Sodium (Docusate Sodium/Senna 50/8.6mg Tab) 1 tab PO QDL PRN PRN Reason: Constipation Stop: 03/30/22 18:34
[2022-03-05 03:03] LABS: Vitamin D 1,25 12 pg/mL (18-72); Vitamin D3,1,25 12 pg/mL
--- NOTE | 2022-03-05 09:34 | Hospitalist Progress Note ---
Date of Service March 05, 2022 Assessment & Plan (1) Hypercalcemia: (2) Elevated troponin: (3) Squamous cell carcinoma of lung: (4) Chronic HFrEF (heart failure with reduced ejection fraction): (5) T2DM (type 2 diabetes mellitus): (6) COPD (chronic obstructive pulmonary disease): (7) Pulmonary HTN: (8) Hx of coronary artery bypass graft: (9) CVA (cerebral vascular accident): Plan: Pt is a 66 y/o M with hx of CAD s/p CABG, HFrEF (15%), severe pulm HTN with hypoxia (on 2L), uncontrolled IDDM, COPD with hx of smoking, subacute L parietal lobe infarct, recent dx of squamous cell carcinoma of the lung brought in from [facility] for elevated calcium Recent dx of R lung squamous cell carcinoma with hypoxia: -former smoker - CTA chest showed no PE -on oxygen supplement - was scheduled to establish care with oncology - Dr. Paras Almazan ([facility]) -palliative consult placed for goals of care discussion -I contacted Dr. Almazan, who was able to review the patient's case and also discussed this with patient's daughter over the phone. Patient's prognosis remains very poor. After their conversation, patient's daughter wished to change patient's status to comfort care. Hypercalcemia: -pts Ca++ was 11.3 upon discharge from [facility] -EKG showed slightly prolong QTc with NSR -not on any Ca++ supplement -Received 1 L of normal saline on admission - PTH 4.7 (low), ionized calcium and Vit D (pending) -due to dx of lung Cancer: if the PTH is normal or low - may need Spine imaging to r/o bone mets -Nephrology consulted, patient started on gentle IV fluids and IV Lasix, calcitonin and zoledronic acid - pt is now comfort care and so all the unnecessary medications were discontinued Elevated WBC: -pt has chronic hx of elevated WBC -procal is neg and afebrile -not suspecting infection -trend CBC - stopped labs, as pt's status changed to comfort care Chronic conditions COPD with hypoxia: -at home pt is on 2L -will continue home regimen or as needed HFrEF and CAD s/p CABG: -trop is elevated -pt is asymptomatic and euvolemic -Hs trop on 02/19/22 was 40 --- on admission it is 29.4 -trop trended down -strict I/O -would consult cards if trop increased or Ca++ worsen - pt is now comfort care status Uncontrolled IDDM: - current A1c 10.3%, recent A1C of 11.1 -will continue home insulin regimen -hold metformin -stopped unnecessary medications as pt is now comfort care Subacute infarct with prior CVA: -no residual weakness -was on statin, aspirin and Plavix, these were stopped as pt is now comfort care Code Status: DNR/DNI Emergency Contact: Daughter (Shannon Scott [phone]) Admission and Anticipated Discharge Date Admission Date: February 28, 2022 Subjective Pt seen in follow up of hypercalcemia in the setting of recently diagnosed lung ca Patient is able to answer some simple questions appropriately. Pt currently denies fever, chills, chest pain, or worsening shortness of breath. Review of Systems Review of Systems: All systems reviewed & are unremarkable except as noted in Subjective Physical Exam Physical Exam: General: thin M inNAD HEENT:.Normocephalic and atraumatic, Normal Conjunctiva, EOMI, Sclera is non- icteric Lungs:No signs of respiratory distress, on suppl. O2 via NC, no wheezing, +mild crackles Heart:.Normal S1, S2, no murmur Abdominal:.ND, Soft, NT MSK:.No LE edema Neurp/Psych: Awake and alert, able to answer some questions appropriately. Speech fluent, no facial asymmetry, moves extremities Results & Data Results & Data ([facility]) Medications Administered Current Inpatient Medications Acetaminophen (Acetaminophen 325 Mg Tab) 650 mg PO Q4H PRN PRN Reason: Pain or Fever Stop: 03/30/22 18:30 Bisacodyl (Bisacodyl 10 Mg Supp) 10 mg [place] DAILY PRN PRN Reason: Constipation Stop: 03/30/22 18:34 Lorazepam (Lorazepam 2 Mg/1 Ml Vial) 0.5 mg IV Q4H PRN PRN Reason: agitation Stop: 04/01/22 21:18 Magnesium Hydroxide (Magnesium Hydroxide Susp 30 Ml Udc) 30 ml PO Q12H PRN PRN Reason: Constipation Stop: 03/30/22 18:30 Morphine Sulfate (Morphine Sulfate 2 Mg/Ml Carp) 1 mg IV Q6H PRN PRN Reason: Pain Stop: 03/16/22 21:18 Ondansetron HCl (Ondansetron Inj 2 Mg/Ml 2 Ml Vial) 4 mg IV Q6H PRN PRN Reason: Nausea Stop: 03/30/22 18:30 Senna/Docusate Sodium (Docusate Sodium/Senna 50/8.6mg Tab) 1 tab PO QDL PRN PRN Reason: Constipation Stop: 03/30/22 18:34
--- NOTE | 2022-03-06 07:08 | Hospitalist Progress Note ---
Date of Service March 06, 2022 Assessment & Plan (1) Hypercalcemia: (2) Elevated troponin: (3) Squamous cell carcinoma of lung: (4) Chronic HFrEF (heart failure with reduced ejection fraction): (5) T2DM (type 2 diabetes mellitus): (6) COPD (chronic obstructive pulmonary disease): (7) Pulmonary HTN: (8) Hx of coronary artery bypass graft: (9) CVA (cerebral vascular accident): Plan: Pt is a 66 y/o M with hx of CAD s/p CABG, HFrEF (15%), severe pulm HTN with hypoxia (on 2L), uncontrolled IDDM, COPD with hx of smoking, subacute L parietal lobe infarct, recent dx of squamous cell carcinoma of the lung brought in from [facility] for elevated calcium Recent dx of R lung squamous cell carcinoma with hypoxia: -former smoker - CTA chest showed no PE -on oxygen supplement - was scheduled to establish care with oncology - Dr. Paras Almazan ([facility]) -palliative consult placed for goals of care discussion -I contacted Dr. Almazan, who was able to review the patient's case and also discussed this with patient's daughter over the phone. Patient's prognosis remains very poor. After their conversation, patient's daughter wished to change patient's status to comfort care. Hypercalcemia: -pts Ca++ was 11.3 upon discharge from [facility] -EKG showed slightly prolong QTc with NSR -not on any Ca++ supplement -Received 1 L of normal saline on admission - PTH 4.7 (low), ionized calcium and Vit D (pending) -due to dx of lung Cancer: if the PTH is normal or low - may need Spine imaging to r/o bone mets -Nephrology consulted, patient started on gentle IV fluids and IV Lasix, calcitonin and zoledronic acid - pt is now comfort care and so all the unnecessary medications were discontinued Elevated WBC: -pt has chronic hx of elevated WBC -procal is neg and afebrile -not suspecting infection -trend CBC - stopped labs, as pt's status changed to comfort care Chronic conditions COPD with hypoxia: -at home pt is on 2L -will continue home regimen or as needed HFrEF and CAD s/p CABG: -trop is elevated -pt is asymptomatic and euvolemic -Hs trop on 02/19/22 was 40 --- on admission it is 29.4 -trop trended down -strict I/O -would consult cards if trop increased or Ca++ worsen - pt is now comfort care status Uncontrolled IDDM: - current A1c 10.3%, recent A1C of 11.1 -will continue home insulin regimen -hold metformin -stopped unnecessary medications as pt is now comfort care Subacute infarct with prior CVA: -no residual weakness -was on statin, aspirin and Plavix, these were stopped as pt is now comfort care Code Status: DNR/DNI Emergency Contact: Daughter (Shannon Scott [phone]) Admission and Anticipated Discharge Date Admission Date: February 28, 2022 Subjective Pt seen in follow up of hypercalcemia in the setting of recently diagnosed lung ca Patient is able to answer some questions appropriately. Seems more awake and alert today. Pt currently denies fever, chills, chest pain, or worsening shortness of breath. Review of Systems Review of Systems: All systems reviewed & are unremarkable except as noted in Subjective Physical Exam Physical Exam: General: thin M inNAD HEENT:.Normocephalic and atraumatic, Normal Conjunctiva, EOMI, Sclera is non- icteric Lungs:No signs of respiratory distress, on suppl. O2 via NC, no wheezing, +mild crackles Heart:.Normal S1, S2, no murmur Abdominal:.ND, Soft, NT MSK:.No LE edema Neurp/Psych: Awake and alert, able to answer some questions appropriately. Speech fluent, no facial asymmetry, moves extremities
[2022-03-07] MEDS: ACETAMINOPHEN 325 MG TAB PO PRN (09:24)
--- NOTE | 2022-03-07 12:26 | Hospitalist Progress Note ---
Date of Service March 07, 2022 Assessment & Plan (1) Hypercalcemia: (2) Elevated troponin: (3) Squamous cell carcinoma of lung: (4) Chronic HFrEF (heart failure with reduced ejection fraction): (5) T2DM (type 2 diabetes mellitus): (6) COPD (chronic obstructive pulmonary disease): (7) Pulmonary HTN: (8) Hx of coronary artery bypass graft: (9) CVA (cerebral vascular accident): Plan: Pt is a 66 y/o M with hx of CAD s/p CABG, HFrEF (15%), severe pulm HTN with hypoxia (on 2L), uncontrolled IDDM, COPD with hx of smoking, subacute L parietal lobe infarct, recent dx of squamous cell carcinoma of the lung brought in from [facility] for elevated calcium Recent dx of R lung squamous cell carcinoma with hypoxia: -former smoker - CTA chest showed no PE -on oxygen supplement - was scheduled to establish care with oncology - Dr. Paras Almazan ([facility]) -palliative consult placed for goals of care discussion -I contacted Dr. Almazan, who was able to review the patient's case and also discussed this with patient's daughter over the phone. Patient's prognosis remains very poor. After their conversation, patient's daughter wished to change patient's status to comfort care. Hypercalcemia: -pts Ca++ was 11.3 upon discharge from [facility] -EKG showed slightly prolong QTc with NSR -not on any Ca++ supplement -Received 1 L of normal saline on admission - PTH 4.7 (low), ionized calcium and Vit D (pending) -due to dx of lung Cancer: if the PTH is normal or low - may need Spine imaging to r/o bone mets -Nephrology consulted, patient started on gentle IV fluids and IV Lasix, calcitonin and zoledronic acid - pt is now comfort care and so all the unnecessary medications were discontinued Elevated WBC: -pt has chronic hx of elevated WBC -procal is neg and afebrile -not suspecting infection -trend CBC - stopped labs, as pt's status changed to comfort care Chronic conditions COPD with hypoxia: -at home pt is on 2L -will continue home regimen or as needed HFrEF and CAD s/p CABG: -trop is elevated -pt is asymptomatic and euvolemic -Hs trop on 02/19/22 was 40 --- on admission it is 29.4 -trop trended down - pt is now comfort care status Uncontrolled IDDM: - current A1c 10.3%, recent A1C of 11.1 -will continue home insulin regimen -hold metformin -stopped unnecessary medications as pt is now comfort care Subacute infarct with prior CVA: -no residual weakness -was on statin, aspirin and Plavix, these were stopped as pt is now comfort care Code Status: DNR/DNI Emergency Contact: Daughter (Shannon Scott [phone]) Admission and Anticipated Discharge Date Admission Date: February 28, 2022 Subjective Pt seen in follow up of hypercalcemia in the setting of recently diagnosed lung ca Patient is able to answer some questions appropriately. Seems more awake and alert today. Today he is able to tell me that it is Sunday, February and year. Yesterday he could not tell me any of this. He even says that yesterday he could not possibly say that and feels that he is more lucid today than he has been in days. I encouraged him to call his family given he is more alert now. Pt currently denies fever, chills, chest pain, or worsening shortness of breath. Review of Systems Review of Systems: All systems reviewed & are unremarkable except as noted in Subjective Physical Exam Physical Exam: General: thin M inNAD HEENT:.Normocephalic and atraumatic, Normal Conjunctiva, EOMI, Sclera is non- icteric Lungs:No signs of respiratory distress, on suppl. O2 via NC, no wheezing, +mild crackles Heart:.Normal S1, S2, no murmur Abdominal:.ND, Soft, NT MSK:.No LE edema Neurp/Psych: Awake and alert, able to answer some questions appropriately. Speech fluent, no facial asymmetry, moves extremities Results & Data Results & Data ([facility]) Medications Administered Current Inpatient Medications Acetaminophen (Acetaminophen 325 Mg Tab) 650 mg PO Q4H PRN PRN Reason: Pain or Fever Stop: 03/30/22 18:30 Last Admin: 03/07/22 09:24 Dose: 650 mg Documented by: Bisacodyl (Bisacodyl 10 Mg Supp) 10 mg NM DAILY PRN PRN Reason: Constipation Stop: 03/30/22 18:34 Lorazepam (Lorazepam 2 Mg/1 Ml Vial) 0.5 mg IV Q4H PRN PRN Reason: agitation Stop: 04/01/22 21:18 Magnesium Hydroxide (Magnesium Hydroxide Susp 30 Ml Udc) 30 ml PO Q12H PRN PRN Reason: Constipation Stop: 03/30/22 18:30 Morphine Sulfate (Morphine Sulfate 2 Mg/Ml Carp) 1 mg IV Q6H PRN PRN Reason: Pain Stop: 03/16/22 21:18 Ondansetron HCl (Ondansetron Inj 2 Mg/Ml 2 Ml Vial) 4 mg IV Q6H PRN PRN Reason: Nausea Stop: 03/30/22 18:30 Senna/Docusate Sodium (Docusate Sodium/Senna 50/8.6mg Tab) 1 tab PO QDL PRN PRN Reason: Constipation Stop: 03/30/22 18:34
--- NOTE | 2022-03-08 17:59 | Hospitalist Progress Note ---
Date of Service March 08, 2022 Assessment & Plan (1) Hypercalcemia: (2) Elevated troponin: (3) Squamous cell carcinoma of lung: (4) Chronic HFrEF (heart failure with reduced ejection fraction): (5) T2DM (type 2 diabetes mellitus): (6) COPD (chronic obstructive pulmonary disease): (7) Pulmonary HTN: (8) Hx of coronary artery bypass graft: (9) CVA (cerebral vascular accident): Plan: Pt is a 66 y/o M with hx of CAD s/p CABG, HFrEF (15%), severe pulm HTN with hypoxia (on 2L), uncontrolled IDDM, COPD with hx of smoking, subacute L parietal lobe infarct, recent dx of squamous cell carcinoma of the lung brought in from [facility] for elevated calcium Recent dx of R lung squamous cell carcinoma with hypoxia: -former smoker - CTA chest showed no PE -on oxygen supplement - was scheduled to establish care with oncology - Dr. Paras Almazan ([facility]) -palliative consult placed for goals of care discussion -I contacted Dr. Almazan, who was able to review the patient's case and also discussed this with patient's daughter over the phone. Patient's prognosis remains very poor. After their conversation, patient's daughter wished to change patient's status to comfort care. Hypercalcemia: -pts Ca++ was 11.[address] [facility] -EKG showed slightly prolong QTc with NSR -not on any Ca++ supplement -Received 1 L of normal saline on admission - PTH 4.7 (low), ionized calcium and Vit D (pending) -due to dx of lung Cancer: if the PTH is normal or low - may need Spine imaging to r/o bone mets -Nephrology consulted, patient started on gentle IV fluids and IV Lasix, calcitonin and zoledronic acid - pt is now comfort care and so all the unnecessary medications were discontinued Elevated WBC: -pt has chronic hx of elevated WBC -procal is neg and afebrile -not suspecting infection -trend CBC - stopped labs, as pt's status changed to comfort care Chronic conditions COPD with hypoxia: -at home pt is on 2L -will continue home regimen or as needed HFrEF and CAD s/p CABG: -trop is elevated -pt is asymptomatic and euvolemic -Hs trop on 02/19/22 was 40 --- on admission it is 29.4 -trop trended down - pt is now comfort care status Uncontrolled IDDM: - current A1c 10.3%, recent A1C of 11.1 -will continue home insulin regimen -hold metformin -stopped unnecessary medications as pt is now comfort care Subacute infarct with prior CVA: -no residual weakness -was on statin, aspirin and Plavix, these were stopped as pt is now comfort care Code Status: DNR/DNI Emergency Contact: Daughter (Shannon Scott [phone]) Admission and Anticipated Discharge Date Admission Date: February 28, 2022 Subjective Pt seen in follow up of hypercalcemia in the setting of recently diagnosed lung ca Patient is able to answer some questions appropriately. Seems more tired today. Pt currently denies fever, chills, chest pain, or worsening shortness of breath. Review of Systems Review of Systems: All systems reviewed & are unremarkable except as noted in Subjective Physical Exam Physical Exam: General: thin M inNAD HEENT:.Normocephalic and atraumatic, Normal Conjunctiva, EOMI, Sclera is non- icteric Lungs:No signs of respiratory distress, on suppl. O2 via NC, no wheezing, +mild crackles Heart:.Normal S1, S2, no murmur Abdominal:.ND, Soft, NT MSK:.No LE edema Neurp/Psych: Awake and alert, able to answer some questions appropriately. Speech fluent, no facial asymmetry, moves extremities Results & Data Results & Data ([facility]) Medications Administered Current Inpatient Medications Acetaminophen (Acetaminophen 325 Mg Tab) 650 mg PO Q4H PRN PRN Reason: Pain or Fever Stop: 03/30/22 18:30 Last Admin: 03/07/22 09:24 Dose: 650 mg Documented by: Bisacodyl (Bisacodyl 10 Mg Supp) 10 mg SC DAILY PRN PRN Reason: Constipation Stop: 03/30/22 18:34 Lorazepam (Lorazepam 2 Mg/1 Ml Vial) 0.5 mg IV Q4H PRN PRN Reason: agitation Stop: 04/01/22 21:18 Magnesium Hydroxide (Magnesium Hydroxide Susp 30 Ml Udc) 30 ml PO Q12H PRN PRN Reason: Constipation Stop: 03/30/22 18:30 Morphine Sulfate (Morphine Sulfate 2 Mg/Ml Carp) 1 mg IV Q6H PRN PRN Reason: Pain Stop: 03/16/22 21:18 Ondansetron HCl (Ondansetron Inj 2 Mg/Ml 2 Ml Vial) 4 mg IV Q6H PRN PRN Reason: Nausea Stop: 03/30/22 18:30 Senna/Docusate Sodium (Docusate Sodium/Senna 50/8.6mg Tab) 1 tab PO QDL PRN PRN Reason: Constipation Stop: 03/30/22 18:34
[2022-03-09] MEDS ORDERED: FUROSEMIDE 40 MG/4 ML VIAL IV ONE (09:34)
--- NOTE | 2022-03-09 13:03 | Hospitalist Progress Note ---
Date of Service March 09, 2022 Assessment & Plan (1) Hypercalcemia: (2) Elevated troponin: (3) Squamous cell carcinoma of lung: (4) Chronic HFrEF (heart failure with reduced ejection fraction): (5) T2DM (type 2 diabetes mellitus): (6) COPD (chronic obstructive pulmonary disease): (7) Pulmonary HTN: (8) Hx of coronary artery bypass graft: (9) CVA (cerebral vascular accident): Plan: Recent diagnosis of squamous Cell lung cancer -Currently comfort measures only -Plan for discharge to SNF to allow family time to make arrangements and for patient to increase strength. Then plan to transition home with hospice Admission and Anticipated Discharge Date Admission Date: February 28, 2022 Subjective Patient feels well Denies chest pain, shortness of breath or other discomfort He is eating and reports regular bowel movements Physical Exam Physical Exam: thin, cachetic, appears older than stated age Respiratory: breathing on nasal canula, no wheezing Cardiovascular: regular rate and rhythm, no murmurs/rubs/gallops Gastrointestinal (Abdomen): soft, non tender Musculoskeletal: no edema
--- NOTE | 2022-03-10 13:16 | Hospitalist Progress Note ---
Date of Service March 10, 2022 Assessment & Plan (1) Hypercalcemia: (2) Elevated troponin: (3) Squamous cell carcinoma of lung: (4) Chronic HFrEF (heart failure with reduced ejection fraction): (5) T2DM (type 2 diabetes mellitus): (6) COPD (chronic obstructive pulmonary disease): (7) Pulmonary HTN: (8) Hx of coronary artery bypass graft: (9) CVA (cerebral vascular accident): Plan: Recent diagnosis of squamous Cell lung cancer -Currently comfort measures only -Plan for discharge to SNF to allow family time to make arrangements and for patient to increase strength. Then plan to transition home with hospice Discharge pending placement Admission and Anticipated Discharge Date Admission Date: February 28, 2022 Subjective No events overnight No new complaints Waiting for placement Physical Exam Physical Exam: thin, cachetic, appears chronically ill Respiratory: breathing comfortably on 2L NC, no wheezing, no accessory muscle use Cardiovascular: regular rate and rhythm, no murmurs/rubs/gallops Gastrointestinal (Abdomen): soft Musculoskeletal: no edema
[2022-03-10] MEDS: ACETAMINOPHEN 325 MG TAB PO PRN (23:28)
--- NOTE | 2022-03-11 13:58 | Hospitalist Progress Note ---
Date of Service March 11, 2022 Assessment & Plan (1) Hypercalcemia: (2) Elevated troponin: (3) Squamous cell carcinoma of lung: (4) Chronic HFrEF (heart failure with reduced ejection fraction): (5) T2DM (type 2 diabetes mellitus): (6) COPD (chronic obstructive pulmonary disease): (7) Pulmonary HTN: (8) Hx of coronary artery bypass graft: (9) CVA (cerebral vascular accident): Plan: Recent diagnosis of squamous Cell lung cancer -Currently comfort measures only -Plan for discharge to SNF to allow family time to make arrangements and for patient to increase strength. Then plan to transition home with hospice Discharge pending placement Admission and Anticipated Discharge Date Admission Date: February 28, 2022 Subjective No events overnight. Still waiting for placement Denies pain, shortness of breath, tolerating diet, denies constipation Physical Exam Physical Exam: thin, frail, appears comfortable, appears older than stated age Respiratory: breathing comfortably on NC, no wheezing/rhonchi/rales Cardiovascular: regular rate and rhythm, no murmurs/rubs/gallops Gastrointestinal (Abdomen): soft, non tender Musculoskeletal: no edema Neurologic: awake, alert, spontaneously moving extremities
--- NOTE | 2022-03-12 14:36 | Hospitalist Progress Note ---
Date of Service March 12, 2022 Assessment & Plan (1) Hypercalcemia: (2) Elevated troponin: (3) Squamous cell carcinoma of lung: (4) Chronic HFrEF (heart failure with reduced ejection fraction): (5) T2DM (type 2 diabetes mellitus): (6) COPD (chronic obstructive pulmonary disease): (7) Pulmonary HTN: (8) Hx of coronary artery bypass graft: (9) CVA (cerebral vascular accident): Plan: Recent diagnosis of squamous Cell lung cancer -Currently comfort measures only -Plan for discharge to SNF to allow family time to make arrangements and for patient to increase strength. Then plan to transition to hospice Discharge pending placement Admission and Anticipated Discharge Date Admission Date: February 28, 2022 Subjective Patient feels well. Appetite is good. Denies constipation or diarrhea Waiting for placement Pain is controlled
--- NOTE | 2022-03-13 15:13 | Hospitalist Progress Note ---
Date of Service March 13, 2022 Assessment & Plan (1) Hypercalcemia: (2) Elevated troponin: (3) Squamous cell carcinoma of lung: (4) Chronic HFrEF (heart failure with reduced ejection fraction): (5) T2DM (type 2 diabetes mellitus): (6) COPD (chronic obstructive pulmonary disease): (7) Pulmonary HTN: (8) Hx of coronary artery bypass graft: (9) CVA (cerebral vascular accident): Plan: Recent diagnosis of squamous Cell lung cancer -Currently comfort measures only -Plan for discharge to SNF to allow family time to make arrangements and for patient to increase strength. Then plan to transition to hospice Discharge pending placement Admission and Anticipated Discharge Date Admission Date: February 28, 2022 Subjective Patient feels well Denies pain Tolerating diet Denies diarrhea or constipation Physical Exam Physical Exam: appears thin, cachetic, disheveled Respiratory: breathing comfortably on NC, no wheezing/rhonchi/rales Cardiovascular: regular rate and rhythm, no murmurs/rubs/gallops Gastrointestinal (Abdomen): soft, non tender Musculoskeletal: no edema Neurologic: awake, alert, spontaneously moving extremities Results & Data Results & Data ([facility]) Medications Administered Current Inpatient Medications Acetaminophen (Acetaminophen 325 Mg Tab) 650 mg PO Q4H PRN PRN Reason: Pain or Fever Stop: 03/30/22 18:30 Last Admin: 03/10/22 23:28 Dose: 650 mg Documented by: Bisacodyl (Bisacodyl 10 Mg Supp) 10 mg GA DAILY PRN PRN Reason: Constipation Stop: 03/30/22 18:34 Lorazepam (Lorazepam 2 Mg/1 Ml Vial) 0.5 mg IV Q4H PRN PRN Reason: agitation Stop: 04/01/22 21:18 Magnesium Hydroxide (Magnesium Hydroxide Susp 30 Ml Udc) 30 ml PO Q12H PRN PRN Reason: Constipation Stop: 03/30/22 18:30 Morphine Sulfate (Morphine Sulfate 2 Mg/Ml Carp) 1 mg IV Q6H PRN PRN Reason: Pain Stop: 03/16/22 21:18 Ondansetron HCl (Ondansetron Inj 2 Mg/Ml 2 Ml Vial) 4 mg IV Q6H PRN PRN Reason: Nausea Stop: 03/30/22 18:30 Senna/Docusate Sodium (Docusate Sodium/Senna 50/8.6mg Tab) 1 tab PO QDL PRN PRN Reason: Constipation Stop: 03/30/22 18:34
--- NOTE | 2022-03-14 14:24 | Hospitalist Progress Note ---
Date of Service March 14, 2022 Assessment & Plan (1) Hypoxia: (2) Squamous cell carcinoma of lung: (3) Hypercalcemia: (4) T2DM (type 2 diabetes mellitus): (5) Chronic HFrEF (heart failure with reduced ejection fraction): Plan: Pt is a 66 y/o M with hx of CAD s/p CABG, HFrEF (15%), severe pulm HTN with hypoxia (on 2L), uncontrolled IDDM, COPD with hx of smoking, subacute L parietal lobe infarct, recent dx of squamous cell carcinoma of the lung brought in from [facility] for elevated calcium. Recent dx of R lung squamous cell carcinoma with hypoxia: former smoker on oxygen supplement Palliative care was brought on board. Pt with overall poor prognosis Pt and family have opted to go to comfort measures only status All non essential medications have been discontinued as well as lab draws CM is on board and plan is to send pt to SNF or home with hospice, dispo pending Code Status DNR/DNI Pt was seen and examined in collaboration with Dr. Hopson, please see addendum Admission and Anticipated Discharge Date Admission Date: February 28, 2022 Supervising Physician Co-Signing Physician Notes Patient was seen and evaluated independently. Chart reviewed. Case discussed with LANNY. Agree with assessment and plan as above Subjective Patient was seen and examined in room 378-2. Follow-up squamous cell lung cancer. He is lying in bed and offers no acute concerns. He is currently awaiting placement. Denies fever, chills, sweats, lightheadedness, dizziness, chest pain, shortness breath, nausea, vomiting, abdominal pain. Review of Systems Review of Systems: All systems reviewed & are unremarkable except as noted in HPI & below Physical Exam Physical Exam: Gen: Elderly, chronically ill appearing male, NAD, A&O x3 HEENT: Normocephalic, atraumatic, conjunctivae moist, sclerae anicteric, mucous membranes moist. Lung: Clear to Auscultation bilaterally, no wheezes/rales/rhonchi on3L O2 via NC Heart: Regular rate, regular rhythm, no murmurs, rubs, or gallops Abdomen: Soft, NT, ND +BS x 4 Extremities: No edema Skin: Warm, no rash, negative turgor. Results & Data Results & Data ([place]) Medications Administered Current Inpatient Medications Acetaminophen (Acetaminophen 325 Mg Tab) 650 mg PO Q4H PRN PRN Reason: Pain or Fever Stop: 03/30/22 18:30 Last Admin: 03/10/22 23:28 Dose: 650 mg Documented by: Bisacodyl (Bisacodyl 10 Mg Supp) 10 mg SC DAILY PRN PRN Reason: Constipation Stop: 03/30/22 18:34 Lorazepam (Lorazepam 2 Mg/1 Ml Vial) 0.5 mg IV Q4H PRN PRN Reason: agitation Stop: 04/01/22 21:18 Magnesium Hydroxide (Magnesium Hydroxide Susp 30 Ml Udc) 30 ml PO Q12H PRN PRN Reason: Constipation Stop: 03/30/22 18:30 Morphine Sulfate (Morphine Sulfate 2 Mg/Ml Carp) 1 mg IV Q6H PRN PRN Reason: Pain Stop: 03/16/22 21:18 Ondansetron HCl (Ondansetron Inj 2 Mg/Ml 2 Ml Vial) 4 mg IV Q6H PRN PRN Reason: Nausea Stop: 03/30/22 18:30 Senna/Docusate Sodium (Docusate Sodium/Senna 50/8.6mg Tab) 1 tab PO QDL PRN PRN Reason: Constipation Stop: 03/30/22 18:34
[2022-03-15] MEDS ORDERED: LORazepam 0.5 MG TAB PO PRN (05:51)
[2022-03-15] MEDS: MoRPHine SULFATE 5 MG/0.25 ML UDP PO PRN (06:01)
[2022-03-15] MEDS: ACETAMINOPHEN 325 MG TAB PO PRN ×2 (08:06→20:29)
--- NOTE | 2022-03-15 12:29 | Hospitalist Progress Note ---
Date of Service March 15, 2022 Assessment & Plan (1) Hypoxia: (2) Squamous cell carcinoma of lung: (3) Hypercalcemia: (4) T2DM (type 2 diabetes mellitus): (5) Chronic HFrEF (heart failure with reduced ejection fraction): Plan: Pt is a 66 y/o M with hx of CAD s/p CABG, HFrEF (15%), severe pulm HTN with hypoxia (on 2L), uncontrolled IDDM, COPD with hx of smoking, subacute L parietal lobe infarct, recent dx of squamous cell carcinoma of the lung brought in from [facility] for elevated calcium. Recent dx of R lung squamous cell carcinoma with hypoxia: former smoker on oxygen supplement Palliative care was brought on board. Pt with overall poor prognosis Pt and family have opted to go to comfort measures only status All non essential medications have been discontinued as well as lab draws CM is on board and plan is to send pt to SNF or home with hospice, dispo pending Code Status DNR/DNI Pt was seen and examined in collaboration with Dr. Tovar, please see addendum Admission and Anticipated Discharge Date Admission Date: February 28, 2022 Supervising Physician Co-Signing Physician Notes Seen and examined independently, chart reviewed, case discussed with Vinita ALICEA and agree with the documentation. He is currently in comfort measures status awaiting placement. He is awake, alert, answering all questions appropriately. Denies any needs. States appetite comes and goes, denies any pain or shortness of breath. States he is comfortable. Rest per note above. Subjective Patient was seen and examined in room 380-1. Follow-up squamous cell lung cancer. He is lying in bed and offers no acute concerns. Eating breakfast. He has a good appetite. He is currently awaiting placement. Denies fever, chills, sweats, lightheadedness, dizziness, chest pain, shortness breath, nausea, vomiting, abdominal pain. Review of Systems Review of Systems: All systems reviewed & are unremarkable except as noted in HPI & below Physical Exam Physical Exam: Gen: Elderly, chronically ill appearing male, NAD, A&O x3 HEENT: Normocephalic, atraumatic, conjunctivae moist, sclerae anicteric, mucous membranes moist. Lung: Clear to Auscultation bilaterally, no wheezes/rales/rhonchi on3L O2 via NC Heart: Regular rate, regular rhythm, no murmurs, rubs, or gallops Abdomen: Soft, NT, ND +BS x 4 Extremities: No edema Skin: Warm, no rash, negative turgor. Results & Data Results & Data ([facility]) Medications Administered Current Inpatient Medications Acetaminophen (Acetaminophen 325 Mg Tab) 650 mg PO Q4H PRN PRN Reason: Pain or Fever Stop: 03/30/22 18:30 Last Admin: 03/15/22 08:06 Dose: 650 mg Documented by: Bisacodyl (Bisacodyl 10 Mg Supp) 10 mg SC DAILY PRN PRN Reason: Constipation Stop: 03/30/22 18:34 Lorazepam (Lorazepam 2 Mg/1 Ml Vial) 0.5 mg IV Q4H PRN PRN Reason: agitation Stop: 04/01/22 21:18 Lorazepam (Lorazepam 0.5 Mg Tab) 0.5 mg PO Q4H PRN PRN Reason: Anxiety/Agitation Stop: 04/14/22 05:50 Magnesium Hydroxide (Magnesium Hydroxide Susp 30 Ml Udc) 30 ml PO Q12H PRN PRN Reason: Constipation Stop: 03/30/22 18:30 Morphine Sulfate (Morphine Sulfate 2 Mg/Ml Carp) 1 mg IV Q6H PRN PRN Reason: Pain Stop: 03/16/22 21:18 Morphine Sulfate (Morphine Sulfate 5 Mg/0.25 Ml Udp) 5 mg PO Q3H PRN PRN Reason: Pain or Respiratory Distress Stop: 03/29/22 05:50 Last Admin: 03/15/22 06:01 Dose: 5 mg Documented by: Ondansetron HCl (Ondansetron Inj 2 Mg/Ml 2 Ml Vial) 4 mg IV Q6H PRN PRN Reason: Nausea Stop: 03/30/22 18:30 Senna/Docusate Sodium (Docusate Sodium/Senna 50/8.6mg Tab) 1 tab PO QDL PRN PRN Reason: Constipation Stop: 03/30/22 18:34
[2022-03-16] MEDS: MoRPHine SULFATE 5 MG/0.25 ML UDP PO PRN (12:33)
--- NOTE | 2022-03-16 15:08 | Discharge Summary ---
Date of Service March 16, 2022 Admission HPI Per Admitting Provider Pt is a 66 y/o M with hx of CAD s/p CABG, HFrEF (15%), severe pulm HTN with hypoxia (on 2L), uncontrolled IDDM, COPD with hx of smoking, subacute L parietal lobe infarct, recent dx of squamous cell carcinoma of the lung brought in from [facility] for elevated calcium. Pt was recently admitted to [facility] for hypoxia and underwent lung biopsy. He was discharged to [facility]. At bedside: pt denied any Cp, SOB, palpitation, N/V or diarrhea. Denied any myalgia, back pain, or muscle twitching Pts daughter at bedside. Their current plan is to move the pt to [place] when he is stable. Pt was scheduled to see oncology tomorrow @ [facility]. Echo (10/2021): Calculated LV ejection Fraction = 15% (bi-plane method of discs). Left ventricular diastolic dysfunction is present when systolic function is reduced. There is diffuse hypokinesis. The right ventricular cavity is mildly dilated. The right ventricular systolic function is severely reduced . Mild aortic valve sclerosis is present. Aortic stenosis is absent. Trace aortic insufficiency is present. Moderate tricuspid regurgitation is present. There is mild pulmonary regurgitation. The proximal inferior vena cava is dilated. The pulmonary artery systolic pressure is 67.6 mmHg. Dilated IVC with reduced collapsability with sniff indicates an elevated right atrial pressure of 15mmHg. Severe pulmonary hypertension is present. MRI brain (01/2022): Generalized volume loss, chronic microvascular ischemia, prior lacunar infarcts, and focal subacute ischemia in the left parietal lobe. Otherwise, significantly limited evaluation due to motion artifact. Although no large enhancing lesions are identified, smaller metastatic lesions cannot be excluded on this examination. Admission Exam Per Admitting Provider General:mildy cachetic,NAD HEENT:.Normocephalic and atraumatic, Normal Conjunctiva, EOMI, Sclera is non- icteric Lungs:.b/l lower lobe rales,No signs of respiratory distress Heart:.Normal S1, S2, no murmur Abdominal:.ND, Soft, NT MSK:.No leg edema Psych:.AAOx3, normal affect Principal Diagnosis Hypoxia Squamous Cell Carcinoma of lung Hypercalcemia T2DM Chronic HFrEF Discharge Exam Gen: Elderly, chronically ill appearing male, NAD, A&O x3 HEENT: Normocephalic, atraumatic, conjunctivae moist, sclerae anicteric, mucous membranes moist. Lung: Clear to Auscultation bilaterally, +rhonchi noted that improved with coughing, no rales, wheeze Heart: Regular rate, regular rhythm, no murmurs, rubs, or gallops Abdomen: Soft, NT, ND +BS x 4 Extremities: No edema Skin: Warm, no rash, negative turgor. Discharge Data Allergies Allergy/AdvReac Type Severity Reaction Status Date / Time No Known Allergies Allergy Verified 02/28/22 16:33 Consultations 02/28/22 17:43 ED Decision to Admit Stat 02/28/22 18:37 Consult Palliative Care Routine 1) Palliative care encounter: Mr. Sanchez is a 66 year old male who presented to the [facility] from [facility] with hypercalcemia. Additional PMH includes: CAD s/p CABG, CHF EF 15%, severe pulmonary HTN, IDDM, and COPD. He was recently unfortunately diagnosed with squamous cell carcinoma of the lung which was discovered recently at [facility] and it was discovered after he underwent a lung biopsy. Unfortunately, the patients cancer is quite progressive and after the family has spoken with the oncologist, they would like to proceed with a conservative approach to his care. Palliative Medicine was consulted to discuss overall goals of care. I met with the patients daughter, Shannon, and her significant other, Dave, in the hallway by her fathers room. She is due to return back to [place] tomorrow. She has indicated that her father has been having intermittent periods of wake/sleep and has not eaten anything over the past 2 days. Additionally, she said that after talking to the oncologist that they have decided that based on the aggressiveness of the tumor, that they would like to focus on a more comfort focused approach to his care. The patient was sleeping and not interactive when I was in the room. He did open his eyes slightly to verbal stimuli, but no meaningful interaction. Goal is to discontinue all non essential medications, including blood work and lab work. I set the expectation that we can observe his progress to determine if he will continue to remain in the hospital vs be discharged to a SNF with hospice. Palliative will follow. 03/01/22 10:17 Consult Nephrology Routine 1) Hypercalcemia: Plan: Severe hypercalcemia until proven otherwise this is hypercalcemia of malignancy in the setting of newly diagnosed upper lobe squamous cell carcinoma of the lung. Management complicated by severely reduced ejection fractionh cont intramuscular calcitonin 4 units per kg every 12 hours > to end today oon 03/01 had zoledronic acid 4 mg IV x1 Calcium almost in the normal range Ordered Studies Chest X-Ray 02/28/22 13:52 SINGLE VIEW CHEST CLINICAL HISTORY: Atypical chest pain. FINDINGS: An AP, portable, upright chest radiograph is obtained. No priors The patient is status post midline sternotomy. The heart is mildly enlarged noting atherosclerotic calcification of the thoracic aorta. The pulmonary vasculature is noncongested. There is significant fullness of both carin. Airspace consolidation is seen throughout the right upper lung. The left lung appears clear noting basilar atelectasis. No large pleural effusion or pneumothorax is seen. The skeletal structures are osteopenic. The bony thorax is grossly intact. IMPRESSION: 1. There is airspace consolidation throughout the right upper lung, likely representing pneumonia. Clinical correlation will be required and radiographic follow-up to resolution is recommended. 2. There is fullness of the carin bilaterally which could represent enlargement of the pulmonary arteries versus lymphadenopathy. If there is concern for obstructing right hilar mass lesion a contrast-enhanced CT scan should be considered. 3. Cardiomegaly with no radiographic evidence of congestive failure. ACT 112: Negative or not required by law. Electronically signed by: Harsh Lawler M.D. 02/28/2022 2:16 PM Chest CTA 02/28/22 15:28 CT angio chest PE protocol CLINICAL HISTORY: Lung ca, elevated troponin, r/o PE TECHNIQUE: Multidetector row helical CT of the chest was performed with angiographic protocol. Coronal and sagittal reformations were obtained. Coronal and sagittal MIPS were obtained from the axial data set and were submitted for Cuídate. Automated dose lowering techniques and/or adjustment according to patient size were utilized for this exam. Comparison: Comparison is made to chest one view 02/28/2022 FINDINGS: Lungs and pleura: Diffuse centrilobular emphysema is seen most prominent in the upper lobes. Diffuse scarring is recommended. Consolidation is seen in the right upper lobe. Heart and pericardium: Heart size is normal. No pericardial effusion. Vessels: No evidence of pulmonary embolism. Moderate atherosclerotic disease is seen. Mediastinum and carin: Unremarkable. Chest wall and lower neck: Unremarkable. Abdomen: Unremarkable. Bones: Old healed rib fractures are seen. IMPRESSION: 1. No evidence of pulmonary embolism. 2. A large focus of consolidation is in the right upper lobe. Emphysema and scarring is seen. ACT 112: Negative or not required by law. Electronically signed by: Fran Quiñonez M.D. 02/28/2022 4:54 PM Chest X-Ray 03/02/22 13:00 XR chest 1V portable HISTORY: 66 years-old Male incr. O2 requirement acute hypoxia COMPARISON: Chest radiograph and CTA chest 02/28/2022 TECHNIQUE: Portable AP view of the chest FINDINGS: Cardiomediastinal and hilar silhouettes are unchanged. Prior median sternotomy. No pneumothorax. Segmental consolidation of the right upper lobe redemonstrated. Emphysema with chronic interstitial coarsening. No large pleural effusion or overt pulmonary edema. Degenerative changes of the shoulders and spine. IMPRESSION: 1. Right upper lobe consolidation which is better characterized on the 02/28/2022 CTA of the chest. While this may represent pneumonia, short-term follow-up after treatment course is recommended to exclude an underlying neoplasm. Continued follow-up is needed. 2. Right hilar adenopathy. 3. Emphysema. ACT 112: Negative or not required by law. The above report was generated using voice recognition software. It may contain grammatical, syntax or spelling errors. Electronically signed by: Basil Brennan M.D. 03/02/2022 1:35 PM Diabetes Follow up A1C 10.3 on 03/01/22 Hospital Course (1) Hypoxia: (2) Squamous cell carcinoma of lung: (3) Hypercalcemia: (4) T2DM (type 2 diabetes mellitus): (5) Chronic HFrEF (heart failure with reduced ejection fraction): Pt is a 66 y/o M with hx of CAD s/p CABG, HFrEF (15%), severe pulm HTN with hypoxia (on 2L), uncontrolled IDDM, COPD with hx of smoking, subacute L parietal lobe infarct, recent dx of squamous cell carcinoma of the lung brought in from [facility] for elevated calcium. Prior to current hospitalization he was recently mated to [facility] for hypoxia and underwent lung biopsy. He eventually was diagnosed with squamous cell carcinoma of lung. He was establish to follow-up with [facility] oncology. During hospitalization secondary to elevated calcium levels he was seen and evaluated by nephrology. He was treated with IV fluids, IV Lasix, calcitonin and zoledronic acid. His calcium did return to normal levels. He was also seen and evaluated by palliative care with family at bedside. Given the aggressiveness of the cancer and conversation the daughter had with oncologist patient and family opted to go for comfort measures. At that point in time it was determined to discontinue all nonessential medications and lab work. He was started on as needed morphine and Ativan. He has intermittently received the morphine, but not Ativan. Initial plan was to possibly transition to SNF with hospice or return home with significant other. Upon waiting for placement he did regain strength and was felt patient would benefit from short-term rehab stay back at [facility]. Ultimate plan is to return home with significant other and continued comfort measures in setting of end-stage lung cancer. On day of discharge patient was in good spirits and saturating normally on 3 L of oxygen. He was otherwise hemodynamically stable. He is a DNR/DNI. Total Time Total Time Spent Total Time Spent (In Minutes): 60 minutes Discharge Plan Discharge Items Patient Disposition: Transfer Inpatient Rehab Fac Reason For Visit: CHF, NEWLY DX LUNG CANCER Discharge Diagnosis: Hypoxia Squamous Cell Carcinoma of lung Hypercalcemia T2DM Chronic HFrEF Condition on Discharge: Fair Activity: Resume your previous activity Bathing: No limitations Non-emergency contact: Primary Care Provider Call non-emergency contact if: you have any medication questions, your symptoms worsen, your pain is not controlled, your pain is worsening, your pain is unusual for you, your pain is concerning for you, you have a fever and your temperature is above 101.5 Follow-up/Referrals: [facility] [Primary Care Provider] - Diet: Regular Addtl Attending Provider Instructions: MEDICATION CHANGES: All of your non essential medications have been stopped. You have been started on medications to help with your goal of care, Comfort. These medications including as needed morphine to help with shortness of breath and ativan to help with restlessness. Continue as needed inhalers for comfort measures. RECOMMENDATIONS FOR FOLLOW-UP: Please follow up with Primary Care Provider upon discharge from [facility]. You are being discharged to [facility] for further rehab in hopes to return to home with comfort measures. Would recommend pulmonary toilet for comfort measures including incentive spirometry and flutter valve. OTHER INSTRUCTIONS: Seek medical attention if you have: * temperature above 101 * chest pain or trouble breathing * abdominal pain, nausea, vomiting * diarrhea, dark stools or bloody stools * any unanswered questions or concerns Call 911 if symptoms are severe. Please take good care of yourself. It has been a pleasure taking care of you. Please take care of yourself. If you have any questions regarding your recent hospitalization please contact [facility] and request Caty Lynn @ [phone]. Vinita Fernandez PA-C Pending Studies at Discharge: No Stand-Alone Forms: My [facility] Skilled Items Patient informed of condition?: Yes DNR: Yes Discharge Level of Care: Acute rehab Communicable Disease: No Discharge Prognosis: Stable Lines: None Urinary Catheter: No Medications and DC Order Prescriptions: New morphine concentrate 100 mg/5 mL (20 mg/mL) Solution 5 mg PO Q3H PRN (Reason: SOB/Pain) Qty: 15 RF: 0 lorazepam 0.5 mg Tablet 0.5 mg PO Q4H PRN (Reason: agitation) Qty: 7 RF: 0 Continued (DME) Oxygen Home Liters Per Minute See Rx Instructions .ROUTE RF: 0 acetaminophen [Tylenol] 325 mg Tablet 650 mg PO Q4H PRN (Reason: Pain (Scale Score 1-3)) RF: 0 sennosides-docusate sodium [Senokot-S] 8.6-50 mg Tablet 1 tab-cap PO QDL PRN (Reason: Constipation) RF: 0 Combivent Respimat 20-100 mcg/actuation Mist 1 puff INHALATION QID PRN (Reason: Shortness Of Breath Or Wheezing) RF: 0 Discontinued atorvastatin 40 mg tablet 40 mg PO QDD RF: 0 aspirin 81 mg tablet,delayed release (DR/EC) 81 mg PO DAILY RF: 0 clopidogrel 75 mg tablet 75 mg PO DAILY RF: 0 metoprolol succinate 50 mg tablet extended release 24 hr 50 mg PO BID RF: 0 furosemide 40 mg tablet 40 mg PO DAILY RF: 0 metformin 1,000 mg tablet 1,000 mg PO BIDM RF: 0 magnesium hydroxide [Milk of Magnesia] 400 mg/5 mL Suspension 30 ml PO DAILY PRN (Reason: Constipation) RF: 0 bisacodyl 10 mg Suppository 10 mg AL DAILY PRN (Reason: Constipation) RF: 0 Humulin R Regular U-100 Insuln 100 unit/mL Solution 1 sliding scale dose SUBCUT ACHS RF: 0 docusate sodium 100 mg Capsule 100 mg PO BID RF: 0 polyethylene glycol 3350 [Miralax] 17 gram/dose Powder 17 g PO QDL PRN (Reason: Constipation) RF: 0 enoxaparin 40 mg/0.4 mL Syringe 40 mg SUBCUT DAILY RF: 0 Breo Ellipta 100-25 mcg/dose Blister With Device 1 inh INHALATION DAILY RF: 0 insulin NPH isoph U-100 human 30 units SC BIDWMEAL RF: 0 Discharge Orders: Discharge Order (Routine); Ordered 03/16/22 Ordered By: Vinita Fernandez Admission Data Admit Date/Time: 02/28/22 17:32 Attending Provider: Chance Tovar Admit Provider: Waldo Holt Primary Care Provider: [facility] Other Providers: Waldo Holt ; Venus Acevedo ; Fermin Chen ; Vinita Fernandez ; [facility] ; [facility] Supervising Physician Co-Signing Physician Notes Seen and examined independently, chart reviewed, case discussed with Vinita ALICEA and agree with the documentation. In summary, this is a 66 year old male with recently diagnosed squamous cell cancer of lung with hypercalcemia. He was transitioned to comfort measure status during the hospital stay given the aggressiveness of his cancer. Initial plan was to discharge to SNF on hospice but while awaiting placement, his strength improved and now going to [facility] for short term rehab stay with ultimate plan to return home with significant other while continuing comfort measures. He has been comfortable throughout my encounter and denied any needs. He is stable for discharge. Rest per note above.
== END 2022-03-16 19:20 | DRG 181 ==
LOC: ED 13:15 → 2E 17:32 → SUATTDRO 17:32 → 2E 18:09 → 3N 03-03 21:19